=== PATIENT | male | born 1955 | race Two or more races ===

== ENCOUNTER 2024-02-26 10:31 | Outpatient (RCR) | payer MEDICARE, SELFPAY ==
[2024-02-26 11:55] LABS: Basophils % (Auto) 1 % (0-2.5); Eosinophils # (Auto) 0.1 Thou/mm3 (0.0-0.5); Eosinophils % (Auto) 3 % (0-10); Hematocrit 37.7 % (41.0-53.0); Hemoglobin 12.5 g/dL (13.5-16.0); Immature Granulocytes % (Auto) 0 % (0-0); Immature Granulocytes Auto 0.01 Thou/mm3 (0.00-0.00); Lymphocytes # (Auto) 1.7 Thou/mm3 (1.0-4.8); Lymphocytes % (Auto) 38 % (10-50); Mean Corpuscular HGB Conc 33.2 g/dl (31.0-37.0); Mean Corpuscular Hemoglobin 31.8 pg (25.0-35.0); Mean Corpuscular Volume 96 fL (80-100); Monocytes # (Auto) 0.6 Thou/mm3 (0.0-0.8); Monocytes % (Auto) 13 % (0-12); Neutrophils % (Auto) 45 % (37-80); Nucleated Red Blood Cell % 0 /100 WBC (0); Platelet Count 198 Thou/mm3 (140-440); RDW Standard Deviation 45.8 fL (35.1-43.9); Red Blood Count 3.93 Miln/mm3 (4.50-5.90); White Blood Count 4.4 Thou/mm3 (3.8-10.6)
[2024-02-26 12:15] LABS: Alanine Aminotransferase 36 U/L (10-49); Albumin, Serum 4.2 gm/dL (3.4-4.8); Albumin/Globulin Ratio 1.4 (1.2-2.2); Alkaline Phosphatase 56 U/L (46-116); Anion Gap 7 (7-16); Aspartate Amino Transferase 63 U/L (0-34); BUN/Creatinine Ratio 13 Ratio (12-20); Bilirubin,Total 0.4 mg/dL (0.3-1.2); Blood Urea Nitrogen 20 mg/dL (9-23); Calcium 9.6 mg/dL (8.3-10.6); Calcium (Corrected) 9.6 mg/dL (8.5-10.1); Carbon Dioxide 28.5 mMol/L (20.0-31.0); Chloride 104 mMol/L (98-107); Creatinine (Component) 1.5 mg/dL (0.6-1.3); Globulin 2.9 gm/dL (2.3-3.5); Glucose 100 mg/dL (74-106); Osmolality,Calculated 280 (275-295); Potassium 3.9 mMol/L (3.4-5.1); Sodium 139 mMol/L (136-145); Total Protein 7.1 gm/dL (5.7-8.2); eGFR 50 See Note
== END 2024-03-09 23:59 | disposition home or self-care (01) ==
LOC: SCTC 10:31
PROVIDERS: PCP Physician Assistant; Referring Provider Physician Assistant; Visit Provider Internal Medicine Hematology & Oncology
DX: C61 Malignant neoplasm of prostate (principal); C79.51 Secondary malignant neoplasm of bone; Z79.818 Long term (current) use of other agents affecting estrogen receptors and estrogen levels; R59.0 Localized enlarged lymph nodes; Z86.19 Personal history of other infectious and parasitic diseases
CPT/HCPCS: 36415; 80053; 85025; 96372; J0897

== ENCOUNTER 2024-03-12 18:34 | Inpatient (IN) | payer MEDICARE, MEDICAID, SELFPAY ==
[2024-03-12 18:51] VITALS: BP 150/69; PULSE 96; RESP 16; TEMP 37.8; O2SAT 94
[2024-03-12 18:53] VITALS: BMI 28.1
--- NOTE | 2024-03-12 18:59 | XR_ITS ---
Examination: CT abdomen with intravenous contrast CT pelvis with intravenous contrast 2-D coronal reconstructions 2-D sagittal reconstructions Date and time of exam: March 13, 2024 at 0159 hrs. Comparison July 10, 2023 Indications: Blood in the stool this week, diagnosis malignant neoplasm of the colon CTDI: vol (mGy) 6.55 DLP: (mGycm) 351 Technique: Multiple axial sections of the abdomen and pelvis have been obtained. 64 slice high-resolution scanner used. 3 mm axial sections have been obtained, post intravenous injection 30 cc Isovue-300 2-D sagittal, coronal reconstructions obtained. Low dose protocols were performed. One or more of the following dose reduction techniques were used; automated exposure control, adjustment of the mA and/or KV according to patient size, use of iterative reconstruction technique. Findings: Mild pneumonia right base, minimal pleural disease Liver mildly irregular in contour No gallstones No splenic or pancreatic lesion No adrenal mass Atrophic left kidney Moderate bilateral renal parenchymal scar formation No renal or ureteral calculi, no hydronephrosis Left lateral periaortic left common iliac lymph nodes, the largest 26 mm No bowel obstruction No pericecal inflammatory change Urinary bladder intact Multiple osteoblastic lesions including thoracic lumbar vertebral bodies posterior left iliac bone, right iliac bone left acetabulum Impression: Right base pneumonia Atrophic left kidney Normal appendix Significant abdominal and left pelvic metastatic lymphadenopathy Osteoblastic metastatic disease No bowel obstruction
--- NOTE | 2024-03-12 18:59 | EKG_ITS ---
[facility] Test Date: 2024-03-12 Pat Name: RYLAN GARY Department: Room: - Gender: Male [employer] Hanger: : 1955 Requested By: Mansoor Stokes Order Number: [id number] Reading MD: Mansoor Stokes Measurements Intervals [place] Rate: 101 P: 54 GA: 163 QRS: -44 QRSD: 89 T: 56 QT: 333 QTc: 432 Interpretive Statements SINUS TACHYCARDIA MARKED LEFT AXIS DEVIATION [QRS AXIS < -30] NONSPECIFIC T-WAVE ABNORMALITY Compared to ECG 12/27/2022 11:24:28 T-wave abnormality now present Sinus rhythm no longer present /store/S0/[id number].pdf
--- NOTE | 2024-03-12 18:59 | PD.EDRME ---
Rapid Medical Screening Exam RME Arrival date/time: 03/12/24 18:34 68 year old male present to ED for c/o of gi bleed, chest pain I have greeted and performed a focused initial assessment of this patient. A comprehensive ED assessment and evaluation of the patient, analysis of all test results, and completion of the medical decision making process will be conducted by additional ED providers. Chief Complaint: GI Bleed Time Seen by Provider: 03/12/24 18:58 Vital signs: Vital Signs Temperature 100.0 F 03/12/24 18:51 Pulse Rate 96 03/12/24 18:51 Respiratory Rate 16 03/12/24 18:51 Blood Pressure 150/69 H 03/12/24 18:51 Pulse Oximetry (%) 94 L 03/12/24 18:51 Oxygen Delivery Method Room Air 03/12/24 18:51
[2024-03-12] MEDS: oxyCODONE/APAP 5/325 TABLET 2 TAB PO (19:17)
[2024-03-12] MEDS: ONDANSETRON ODT 4 MG TABRAP PO (19:17)
[2024-03-12 19:51] LABS: Basophils % (Auto) 1 % (0-2.5); Eosinophils # (Auto) 0.2 Thou/mm3 (0.0-0.5); Eosinophils % (Auto) 3 % (0-10); Hematocrit 32.3 % (41.0-53.0); Hemoglobin 11.2 g/dL (13.5-16.0); Immature Granulocytes % (Auto) 0 % (0-0); Immature Granulocytes Auto 0.01 Thou/mm3 (0.00-0.00); Lymphocytes # (Auto) 2.3 Thou/mm3 (1.0-4.8); Lymphocytes % (Auto) 37 % (10-50); Mean Corpuscular HGB Conc 34.7 g/dl (31.0-37.0); Mean Corpuscular Hemoglobin 31.9 pg (25.0-35.0); Mean Corpuscular Volume 92 fL (80-100); Monocytes # (Auto) 0.6 Thou/mm3 (0.0-0.8); Monocytes % (Auto) 10 % (0-12); Neutrophils # (Auto) 3.1 Thou/mm3 (1.8-7.7); Neutrophils % (Auto) 49 % (37-80); Nucleated Red Blood Cell % 0 /100 WBC (0); Platelet Count 239 Thou/mm3 (140-440); RDW Standard Deviation 43.5 fL (35.1-43.9); Red Blood Count 3.51 Miln/mm3 (4.50-5.90); White Blood Count 6.2 Thou/mm3 (3.8-10.6)
[2024-03-12 20:07] LABS: Prothrombin Time 10.9 Seconds (9.0-12.2)
[2024-03-12 20:10] LABS: Alanine Aminotransferase 28 U/L (10-49); Albumin, Serum 4.4 gm/dL (3.4-4.8); Albumin/Globulin Ratio 1.7 (1.2-2.2); Alkaline Phosphatase 52 U/L (46-116); Anion Gap 9 (7-16); Aspartate Amino Transferase 48 U/L (0-34); BUN/Creatinine Ratio 23 Ratio (12-20); Bilirubin,Total 0.6 mg/dL (0.3-1.2); Blood Urea Nitrogen 36 mg/dL (9-23); Calcium 10.1 mg/dL (8.3-10.6); Calcium (Corrected) 10.1 mg/dL (8.5-10.1); Chloride 100 mMol/L (98-107); Creatinine (Component) 1.6 mg/dL (0.6-1.3); Estimated Creatinine Clearance 39.4 mL/min (>60); Globulin 2.6 gm/dL (2.3-3.5); Glucose 105 mg/dL (74-106); Lipase 22 U/L (12-53); Osmolality,Calculated 282 (275-295); Potassium 3.7 mMol/L (3.4-5.1); Sodium 137 mMol/L (136-145); Troponin I < 0.020 ng/mL (0.0-0.045); eGFR 47 See Note
[2024-03-12 21:11] VITALS: BP 119/69; PULSE 95; RESP 16; TEMP 37.6; O2SAT 92
[2024-03-12 23:57] VITALS: BP 112/65; PULSE 89; RESP 15; O2SAT 91
[2024-03-13] VITALS (10 sets, daily range): BP systolic 106–146; BP diastolic 61–82; PULSE 60–114; RESP 12–96; TEMP 36.2–37.1; O2SAT 20–97
--- NOTE | 2024-03-13 02:51 | PD.EDGIBLD ---
ED GI Bleed RME/HPI General Chief complaint: GI Bleed Stated complaint: BLOOD IN STOOL, CHEST PAIN, CANCER PATIENT Time Seen by Provider: 03/12/24 18:58 Arrival date/time: 03/12/24 18:34 Limitations: no limitations RME / HPI RME / HPI Narrative: 03/12/24 18:34 68 year old male present to ED for c/o of gi bleed, chest pain I have greeted and performed a focused initial assessment of this patient. A comprehensive ED assessment and evaluation of the patient, analysis of all test results, and completion of the medical decision making process will be conducted by additional ED providers. Dr. Cobian's Main ED Evaluation: 68yo male presents to the ED for a chief complaint of bloody emesis x 1 day. Patient's states the patient was coughing last night, and started vomiting blood today. Patient states he started having mid chest pain when he was on his way in for evaluation. Reports associated dizziness and weakness. He denies any abdominal pain, back pain, bloody stools or any other associated symptoms. Denies any tobacco or alcohol use. Denies any history of similar symptoms. No known allergies. PMHx: HTN, HLD, asthma, prostate CA with bone mets and intra-abdominal adenopathy (2022) followed by Dr. Miramontes Related Data Home Medications ?Medication ?Instructions ?Recorded ?Confirmed amlodipine 10 mg tablet 10 mg PO QDAY 12/27/22 12/27/22 hydrochlorothiazide 12.5 mg tablet 12.5 mg PO QAM 12/27/22 12/27/22 simvastatin 40 mg tablet 40 mg PO QPM 12/27/22 12/27/22 tamsulosin 0.4 mg capsule (Flomax) 0.4 mg PO QDAY 12/27/22 12/27/22 Allergies Allergy/AdvReac Type Severity Reaction Status Date / Time No Known Allergies Allergy Verified 03/12/24 18:38 Review of Systems Review of Systems Systems Reviewed: All systems reviewed, normal except as documented Past Medical History Past Medical History NEUROLOGIC: Negative Neurological Disorders or Seizures CARDIAC: Positive Cardiac Disorders, Hypercholesterolemia, Deep Vein Thrombosis (right leg many yrs ago) and Hypertension; Negative Congestive Heart Failure RESPIRATORY: Positive Asthma (child); Negative Chronic Obstructive Pulmonary Disease (COPD) GASTROINTESTINAL: Positive Gastrointestinal Disorders, Hepatitis (C treated), Colorectal Cancer and Obesity GENITOURINARY: Positive Genitourinary Disorders, Prostate Cancer (stage 4) and Benign Prostatic Hyperplasia; Negative Renal Disease REPRODUCTIVE: Positive Gonorrhea (treated when teenager) and Syphilis (treated when teenager) MUSCULOSKELETAL: Positive Musculoskeletal Disorders and Arthritis ENDOCRINE: Negative Endocrine Disorders, Diabetes Mellitus Type 1 or Diabetes Mellitus Type 2 HEMATOLOGIC: Negative Blood Disorders or Sickle Cell Disease PSYCHO/SOCIAL: Positive Recreational Drug Use (cocaine, heroin as a teen) OTHER HISTORY: Positive Hospitalization (surgery), Chicken Pox, Cancer, Colorectal Cancer and Prostate Cancer (stage 4); Negative Autoimmune Disease, Shingles, Blood Transfusions, Blood Transfusion Reaction, Anesthesia Reactions or MRSA Family History FAMILY HISTORY: Negative Family Psychiatric Problems, Family Respiratory Disorders, Family Cardiac Disorders, Family Gastrointestinal Problems, Family Cancer, Family Surgery or Family Anesthesia Reaction Social History SMOKING STATUS: Never smoker ED Exam General Limitations: Present no limitations General appearance: Present alert, in no apparent distress and other (face is gaunt looking) Head Head exam: Present atraumatic Eye Eye exam: Present normal appearance, PERRL and EOMI ENT ENT exam: Present normal exam, normal oropharynx, mucous membranes dry and other (tongue is dry) Neck Neck exam: Present normal inspection, full ROM and trachea midline Chest Chest inspection: Present normal inspection and symmetric chest wall rise Respiratory Respiratory exam: Present normal lung sounds bilaterally Cardiovascular Cardiovascular exam: Present regular rate, normal rhythm and normal heart sounds Abdominal Exam Abdominal exam: Present soft, normal bowel sounds and other (large); Absent rebound or mass Extremities Exam Extremities exam: Present normal inspection, full ROM and normal capillary refill; Absent pedal edema Back Exam Back exam: Present normal inspection and full ROM Neurological Exam Neurological exam: Present alert, oriented X3 and CN II-XII intact Psychiatric Psychiatric exam: Present normal affect and normal mood Skin Skin exam: Present warm, dry, intact, normal color, pallor and other (decreased skin turgor; no petechiae); Absent mottled Course Course Course Narrative: showed me a picture of the patient's emesis and it appeared dark with some clots. CXR ordered to r/o aspiration pneumonia. Quality Measures none Orders Category Date Time Status COVID-19 Screening Questionnaire NOW Care 03/13/24 04:[address] Screening NOW Care 03/12/24 19:00 Active Decision to Admit X1 Care 03/13/24 04:01 Active EKG (ED ONLY) *Do not use* NOW Care 03/12/24 19:00 Completed Insert IV NOW Care 03/13/24 01:17 Active Consult to Gastroenterology Stat Cons 03/13/24 04:[address] abdomen pelvis w con Stat Exams 03/12/24 18:59 Taken CXRP [XR chest 1V portable] Stat Exams 03/13/24 03:40 Taken EKG (ED Only) Stat Exams 03/12/24 18:59 Draft CBC Stat Lab 03/12/24 19:38 Completed CMP [Comprehensive Metabolic Panel] Stat Lab 03/12/24 19:38 Completed INR [Prothrombin Time with INR] Stat Lab 03/12/24 19:38 Completed Lipase Stat Lab 03/12/24 19:38 Completed Troponin I Stat Lab 03/12/24 19:38 Completed Ondansetron Odt [Zofran Odt] Med 03/12/24 19:12 Discontinued 4 mg PO X1 ONE Pantoprazole Inj [Protonix Inj] Med 03/13/24 03:06 Discontinued 80 mg IV X1 ONE Pantoprazole/Ns 80Mg IV Premix [Protonix/NS 80mg IV Med 03/13/24 03:06 Active Premix] 80 mg in 100 ml IV X1 Sodium Chloride 0.9% 1000 ml [Ns] 1,000 ml Med 03/13/24 03:29 Active IV 999 mls/hr oxyCODONE/APAP 5/325 [Percocet 5/325] Med 03/12/24 19:11 Discontinued 2 tab PO X1 ONE Vital Signs Vital signs: Vital Signs Temperature 100.0 F 03/12/24 18:51 Pulse Rate 96 03/12/24 18:51 Respiratory Rate 16 03/12/24 18:51 Blood Pressure 150/69 H 03/12/24 18:51 Pulse Oximetry (%) 94 L 03/12/24 18:51 Oxygen Delivery Method Room Air 03/12/24 18:51 GI Bleed Patient data External records reviewed:: [facility] previous records (Reviewed outpatient oncology notes.) Clinical information provided by:: patient Social determinants that could affect healthcare access:: none Patient has the following chronic illnesses:: HTN, HLD, asthma, prostate CA with bone mets and intra-abdominal adenopathy (2022) How is presenting disease/condition affected by chronic disease/condition?: uneffected by Evaluation data The following diagnostics were reviewed and interpreted by me:: lab results, radiology exam(s) and EKG tracing(s) Lab and/or radiology exams considered but not ordered:: none Interpretation Summary: CBC is normal, PT and INR are normal, Creatinine is slightly elevated at 1.6, troponin is normal, Lipase is normal, according to my interpretation. CXR shows bilateral haziness, atelectasis at the right base, no infiltrate, hilar fullness on the left, mild cardiomegaly, no pneumothorax, according to my interpretation. EKG done at 1906, sinus tachycardia, rate of 101, left axis deviation, nonspecific ST-T wave changes in V2, no other elevations or depressions, QTc: 391, according to my interpretation. ------ Telerad Preliminary Report Draft Patient: RYLAN GARY. Record#: [id number] Birthdate: 1955 Age/Sex: 68 / M Location: [facility] Attending Dr: Ordering Physician: Date of Service: Procedure(s): Accession Number(s): cc: ~ CT scan of the abdomen and pelvis with intravenous contrast (axial sections with sagittal and coronal reformats). March 13, 2024 at 0159 hours Clinical History: Rectal bleeding, history of colon cancer. Comparison: Compared with the prior study dated July 10, 2023. Findings: Limited evaluation due to suboptimal bolus of contrast. There is a small right pleural effusion, new since the prior examination. Bibasilar dependent and streaky atelectasis is present. A small hiatal hernia is present. Calcific densities are again seen in the liver, likely representing calcified granulomas. The left kidney is mildly atrophic with again noted focal parenchymal scarring in the upper pole. Small hypodense lesions are again noted in both kidneys, too small to characterize. There is interval passage of the left distal ureteric calculus with interval resolution of the mild hydroureteronephrosis seen in the prior examination. The gallbladder, pancreas, spleen and adrenals are unremarkable. No evidence of bowel obstruction. The appendix is within normal limits. Again seen are prominent retroperitoneal and bilateral iliac lymph nodes with adjacent fat stranding, slightly decreased in size since the prior examination, the largest seen in the left iliac region, now measuring 2.7 x 1.4 cm, previously measured 3.4 x 1.8 cm. The urinary bladder is incompletely distended with apparent mild wall thickening and mild adjacent fat stranding, slightly increased since the prior examination. There is no free fluid or free air. The abdominal aorta demonstrates atheromatous calcification without evidence of aneurysm. Again seen are small fat-containing umbilical and bilateral inguinal hernias. Degenerative changes are again identified in the spine. Stable multiple sclerotic lesions in bilateral iliac bones, L5 and S1 vertebral bodies, which may represent metastases. Impression: 1. Limited study for detection of active gastrointestinal bleeding due to suboptimal bolus of contrast. 2. Small right pleural effusion, new since the prior examination. 3. Prominent retroperitoneal and bilateral iliac lymph nodes, slightly decreased in size since the prior examination 4. Other findings as described above. Report Electronically Signed By: Nida Iglesias 03/13/2024 3:58:10 AM [EST] Medications / Prescriptions Medications or Prescriptions considered but not ordered:: none Medication administrations:: Medication Administration History Pantoprazole Sodium (Protonix/Ns 80mg Iv Premix) 80 mg in 100 mls @ 10 mls/hr IV X1 ONE Stop: 03/13/24 13:05 Last Admin: 03/13/24 03:35 Dose: 10 mls/hr Documented By: EF Sodium Chloride (Ns) 1,000 mls @ 999 mls/hr IV .Q1H1M ONE Stop: 03/13/24 04:29 Last Admin: 03/13/24 03:36 Dose: 999 mls/hr Documented By: EF Discontinued Medications Ondansetron HCl (Ondansetron Odt 4 Mg Tabrap) 4 mg PO X1 ONE; Protocol Stop: 03/12/24 19:13 Last Admin: 03/12/24 19:17 Dose: 4 mg Documented By: OA Oxycodone/Acetaminophen (Oxycodone/Apap 5/325 Tablet) 2 tab PO X1 ONE Stop: 03/12/24 19:12 Last Admin: 03/12/24 19:17 Dose: 2 tab Documented By: OA Pantoprazole Sodium (Pantoprazole Inj 40 Mg Vial) 80 mg IV X1 ONE Stop: 03/13/24 03:07 Last Admin: 03/13/24 03:35 Dose: 80 mg Documented By: EF see above Consultations Consultation(s) initiated? (list below): Yes Consultation #1 (Physician, Specialty, Details): Discussed case with [the resident physician, attending Dr. Lema] from Hospitalist service regarding admission. Discussed patients ED course, exam findings, labs, and radiology results. The Hospitalist [agrees, declines] to accept the patient for admission. Time: 03:59 Consultation #2 (Physician, Specialty, Details): Discussed case with [Dr. Miller] from [GI] regarding [consultation]. Discussed patients ED course, exam findings, labs, and radiology results. Agrees to consult. Time: 04:06 Diagnosis GI bleed differential diagnosis: esophageal varices, Ashley-Cedillo syndrome, Upper gastrointestinal hemorrhage, Lower gastrointestinal hemorrhage and other (metastasis) Most likely diagnosis given after review of the tests above:: see below Admission Indicated Admission indicated?: indicated Admission Request Was there a request for admission?: Yes Admission Attestation Admission request attestation: Discussed case with [] from Hospitalist service regarding admission. Discussed patients ED course, exam findings, labs, and radiology results. The Hospitalist [agrees,declines] to accept the patient for admission. Disposition Plan Disposition Plan: Admit Critical Care Time Critical Care Time Critical Care Time: Yes Total Critical Care Time (min.): 35 Attestation: The high probability of sudden, clinically significant deterioration in the patient?s condition required the highest level of my preparedness to intervene urgently. The services I provided to this patient were to treat and/or prevent clinically significant deterioration. Services included the following: chart data review, reviewing nursing notes and/or old charts, documentation time, client development consultant collaboration regarding findings and treatment options, medication orders and management, direct patient care, vital sign assessments and ordering, interpreting and reviewing diagnostic studies and lab tests. Aggregate critical care time includes only time during which I was engaged in work directly related to the patient?s care, as described above, whether at bedside or elsewhere in the Emergency Department. It did not include time spent performing other reported procedures or the services of residents, students, nurses or physician assistants. Discharge Plan Plan Patient Disposition: Admit Acute Care w/in Hospital Patient condition on transfer: Stable Prescriptions/Referrals Prescriptions/Med Rec: No Action simvastatin 40 mg Tablet 40 mg PO QPM tamsulosin [Flomax] 0.4 mg Capsule 0.4 mg PO QDAY amlodipine 10 mg Tablet 10 mg PO QDAY hydrochlorothiazide 12.5 mg Tablet 12.5 mg PO QAM Referrals: CottoJoshua, PA-C [Primary Care Provider] - In 1 week Problem List Clinical Impression: Upper gastrointestinal hemorrhage, Acute renal failure Patient/Caregiver Discharge Instructions Print Language: Monegasque Stand Alone Forms: Annabelle Award Info., Patient Portal Info Letter
[2024-03-13] MEDS: PANTOPRAZOLE/NS 80MG IV PREMIX 80 MG/100 ML BAG 10 MG IV (03:35)
[2024-03-13] MEDS: PANTOPRAZOLE INJ 40 MG VIAL 80 MG IV (03:35)
[2024-03-13] MEDS: SODIUM CHLORIDE 0.9% 1000 ML 1,000 ML 999 ML IV (03:36)
--- NOTE | 2024-03-13 03:40 | XR_ITS ---
Examination: AP chest single view Technique: AP portable upright chest single view Exam date and time: March 13, 2024 0355 hrs. Indications: Vomiting today. Findings: Negative for aspiration pneumonia Accentuation bronchovascular markings No significant cardiac enlargement No pulmonary edema Impression: Mild basilar bronchitis pattern
--- NOTE | 2024-03-13 03:58 | PRELIM_ITS ---
CT scan of the abdomen and pelvis with intravenous contrast (axial sections with sagittal and coronal reformats). March 13, 2024 at 0159 hoursClinical History: Rectal bleeding, history of colon cancer .Comparison: Compared with the prior study dated July 10, 2023.Findings:Limited evaluation due to subo ptimal bolus of contrast.There is a small right pleural effusion, new since the prior examination. Bi basilar dependent and streaky atelectasis is present. A small hiatal hernia is present. Calcific dens ities are again seen in the liver, likely representing calcified granulomas. The left kidney is mildl y atrophic with again noted focal parenchymal scarring in the upper pole. Small hypodense lesions are again noted in both kidneys, too small to characterize. There is interval passage of the left distal ureteric calculus with interval resolution of the mild hydroureteronephrosis seen in the prior exami nation.The gallbladder, pancreas, spleen and adrenals are unremarkable.No evidence of bowel obstructi on. The appendix is within normal limits. Again seen are prominent retroperitoneal and bilateral dominga c lymph nodes with adjacent fat stranding, slightly decreased in size since the prior examination, th e largest seen in the left iliac region, now measuring 2.7 x 1.4 cm, previously measured 3.4 x 1.8 cm . The urinary bladder is incompletely distended with apparent mild wall thickening and mild adjacent fat stranding, slightly increased since the prior examination. There is no free fluid or free air.The abdominal aorta demonstrates atheromatous calcification without evidence of aneurysm. Again seen are small fat-containing umbilical and bilateral inguinal hernias. Degenerative changes are again identi fied in the spine. Stable multiple sclerotic lesions in bilateral iliac bones, L5 and S1 vertebral uday dies, which may represent metastases. Impression:1. Limited study for detection of active gastrointes tinal bleeding due to suboptimal bolus of contrast.2. Small right pleural effusion, new since the see or examination. 3. Prominent retroperitoneal and bilateral iliac lymph nodes, slightly decreased in s ize since the prior examination4. Other findings as described above. Report Electronically Signed By : Nida Iglesias 03/13/2024 3:58:10 AM [EST]
--- NOTE | 2024-03-13 04:48 | PD.RESHP ---
Documentation for date of: 03/13/24 HPI History of Present Illness Chief complaint: Coffee-ground emesis and chest pain for 1 day History of present illness: HPI: A 68-year-old male patient with past medical history of hepatitis C, prostatic cancer with bone metastasis following up with Dr. Hayes, remote history of heroin abuse, remote history of cocaine abuse, presented to the ED due to 5 episodes of coffee-ground vomiting since yesterday. Patient reported for the past 2 days he has been coughing up brownish phlegm however he denied any fever or chills. Denied any shortness of breath or runny nose. Yesterday patient had 5 episodes of coffee-ground emesis associated with mild epigastric pain. Patient reported that he has never had such symptoms before. On questioning patient also reported chest pain that started at 11 in the morning and continued for almost 30 minutes and it resolved by itself. The pain was diffuse and poorly localized, happened at rest and resolved by itself. Home medications: Morphine, tamsulosin, simvastatin, prednisone, hormonal therapy for prostatic cancer. ED course: In the ED patient was found to have stable vital signs, rate was 96. Hemoglobin was stable at 10.3 his baseline is 11.5. Hematocrit of 30, platelets of 209 coagulation studies within normal limits. Chemistry was significant only for serum creatinine of 1.6 which is his baseline from previous labs. GFR of 47. CT scan of the abdomen and pelvis showed small right pleural effusion that is new and was not seen in the previous CT. Retroperitoneal bilateral iliac lymphadenopathy that showed significant improvement since previous CT scan that was done in July 2023. Also sclerotic bone lesions most likely metastatic tumors. PMH:As above PSX: Air embolism removal Social hx: Alcohol:Denied Tobacco:55 years of smoking 1 to 2 packs/day Illicit drugs: IV drug use, last use was 2 years ago Allergies: No known allergies Review of Systems Review of Systems Systems Reviewed: All systems reviewed, normal except as documented Exam Vital Signs Temp Pulse Resp BP Pulse Ox O2 Del Method O2 Flow Rate 97.7 F 65 12 132/82 H 97 Nasal Cannula 2 03/13/24 03:45 03/13/24 03:45 03/13/24 03:45 03/13/24 03:45 03/13/24 03:45 03/13/24 03:45 03/13/24 03:45 Narrative Exam GEN: AOx3, able to speak full sentences HEENT: NC/AC, PERRLA, oral mucosa moist, neck supple CVS: RRR, S1-S2 present, no murmurs appreciated RESP: CTAB GI: soft,non distended, left loin area tenderness, NBS MSK: able to move all 4 limbs, no lower extremity edema SKIN: Multiple tattoos ELECTRICAL MAINTENANCE TECHNICIAN: CN II-XII and Sensation grossly intact. Results: Labs 03/13/24 05:40 03/13/24 05:40 Labs: Short CBC 03/12/24 Range/Units 19:38 WBC 6.2 (3.8-10.6) Thou/mm3 Hgb 11.2 L (13.5-16.0) g/dL Hct 32.3 L (41.0-53.0) % Plt Count 239 D (140-440) Thou/mm3 BMP 03/12/24 19:38 Sodium 137 Potassium 3.7 Chloride 100 Carbon Dioxide 28.0 BUN 36 H Creatinine 1.6 H Glucose 105 Calcium 10.1 Cardiac Enzymes 03/12/24 Range/Units 19:38 Troponin I < 0.020 (0.0-0.045) ng/mL Liver Function 03/12/24 Range/Units 19:38 Total Bilirubin 0.6 (0.3-1.2) mg/dL AST 48 H (0-34) U/L ALT 28 (10-49) U/L Alkaline Phosphatase 52 (46-116) U/L Albumin 4.4 (3.4-4.8) gm/dL Quality Measures Quality Measures none Advance care planning discussed with:: patient Medications Home Medications and Allergies Home Medications ?Medication ?Instructions ?Recorded ?Confirmed ?Type amlodipine 10 mg tablet 10 mg PO QDAY 12/27/22 12/27/22 History hydrochlorothiazide 12.5 mg tablet 12.5 mg PO QAM 12/27/22 12/27/22 History simvastatin 40 mg tablet 40 mg PO QPM 12/27/22 12/27/22 History tamsulosin 0.4 mg capsule (Flomax) 0.4 mg PO QDAY 12/27/22 12/27/22 History Allergies Allergy/AdvReac Type Severity Reaction Status Date / Time No Known Allergies Allergy Verified 03/12/24 18:38 Visit Medications Pantoprazole Sodium (Protonix/Ns 80mg Iv Premix) 80 mg in 100 mls @ 10 mls/hr IV X1 ONE Stop: 03/13/24 13:05 Last Admin: 03/13/24 03:35 Dose: 10 mls/hr Discontinued Medications Sodium Chloride (Ns) 1,000 mls @ 999 mls/hr IV .Q1H1M ONE Stop: 03/13/24 04:29 Last Admin: 03/13/24 03:36 Dose: 999 mls/hr Ondansetron HCl (Ondansetron Odt 4 Mg Tabrap) 4 mg PO X1 ONE; Protocol Stop: 03/12/24 19:13 Last Admin: 03/12/24 19:17 Dose: 4 mg Oxycodone/Acetaminophen (Oxycodone/Apap 5/325 Tablet) 2 tab PO X1 ONE Stop: 03/12/24 19:12 Last Admin: 03/12/24 19:17 Dose: 2 tab Pantoprazole Sodium (Pantoprazole Inj 40 Mg Vial) 80 mg IV X1 ONE Stop: 03/13/24 03:07 Last Admin: 03/13/24 03:35 Dose: 80 mg Assessment & Plan Plan A 68-year-old male patient with past medical history of hepatitis C, prostatic cancer with bone metastasis following up with Dr. Hayes, remote history of heroin abuse, remote history of cocaine abuse, presented to the ED due to 5 episodes of coffee-ground vomiting since yesterday. Patient was admitted for upper GI bleed workup. Assessment and plan #Upper GI bleed In the ED patient was found to have stable vital signs, rate was 96. Hemoglobin was stable at 10.3 his baseline is 11.5. Hematocrit of 30, platelets of 209 coagulation studies within normal limits. Patient vital stable. no active bleed. Plan ? Daily CBC ? GI specialist Dr. Miller was consulted, follow-up on recommendations ?Continue pantoprazole drip ? Clear liquid diet ? Follow-up on the FOB test #Chest pain Patient reported that he experienced pressure-like chest pain diffuse, unprovoked, at rest, not related to respiration. Resolved by itself after 30 minutes. EKG was within normal limits with no ischemic changes. Troponins within normal limits Plan ? Continue to monitor closely ? Consider consulting cardiology if clinically warranted ? Because of the risk of GI bleed we did not start the patient on aspirin until further evaluation. #CKD Patient is unaware of any kidney disease. On review of the patient's chart his baseline serum creatinine is 1.6 with GFR of 47. Plan ? Avoid nephrotoxic medications ? Daily BMP ? Consider consulting wood handler if clinically warranted #History of prostate cancer with metastasis #Diffuse bone metastasis Patient has history of prostatic cancer, follow-up with Dr. Hayes. Patient is unaware of his cancer medications Plan ? Consider resuming patient medications after med reconciliation ? Resume patient tamsulosin #Incidental finding of pleural effusion Patient does not complain of any shortness of breath, cough, runny nose, or congestion. Denied any history of sick contact Plan ? Continue to monitor could be related to cancer metastasis #Remote history of IV drug abuse #History of hepatitis C Liver enzymes within normal limits, albumin levels within normal limits no coagulopathy. CT scan did not show liver cirrhosis. Plan ? HIV screening ? Follow-up with the GI specialist recommendations ? Follow-up in an outpatient settings with his PCP Hospital Maintenance: FEN: Clear liquid diet DVT ppx: SCDs GI ppx: Protonix IV lines: PIV Mayberry: None Code status: Full code Dispo: Med/tele - Patient's plan and care discussed with my attending, Dr. Torey Gomez MD Internal Medicine PGY-2
[2024-03-13 05:50] LABS: Basophils % (Auto) 1 % (0-2.5); Eosinophils # (Auto) 0.2 Thou/mm3 (0.0-0.5); Eosinophils % (Auto) 4 % (0-10); Hematocrit 30.6 % (41.0-53.0); Hemoglobin 10.3 g/dL (13.5-16.0); Immature Granulocytes % (Auto) 0 % (0-0); Lymphocytes # (Auto) 2.5 Thou/mm3 (1.0-4.8); Lymphocytes % (Auto) 45 % (10-50); Mean Corpuscular HGB Conc 33.7 g/dl (31.0-37.0); Mean Corpuscular Hemoglobin 31.8 pg (25.0-35.0); Mean Corpuscular Volume 94 fL (80-100); Monocytes # (Auto) 0.7 Thou/mm3 (0.0-0.8); Monocytes % (Auto) 12 % (0-12); Neutrophils # (Auto) 2.2 Thou/mm3 (1.8-7.7); Neutrophils % (Auto) 39 % (37-80); Nucleated Red Blood Cell % 0 /100 WBC (0); Platelet Count 209 Thou/mm3 (140-440); RDW Standard Deviation 44.7 fL (35.1-43.9); Red Blood Count 3.24 Miln/mm3 (4.50-5.90); White Blood Count 5.6 Thou/mm3 (3.8-10.6)
[2024-03-13 06:07] LABS: Glucose Estimated Average 100 mg/dL (80-131); Hemoglobin A1C 5.1 % Hgb (4.8-6.0)
[2024-03-13 06:43] LABS: Alanine Aminotransferase 24 U/L (10-49); Albumin, Serum 3.8 gm/dL (3.4-4.8); Albumin/Globulin Ratio 1.7 (1.2-2.2); Alkaline Phosphatase 47 U/L (46-116); Anion Gap 8 (7-16); Aspartate Amino Transferase 41 U/L (0-34); BUN/Creatinine Ratio 23 Ratio (12-20); Bilirubin,Total 0.4 mg/dL (0.3-1.2); Blood Urea Nitrogen 37 mg/dL (9-23); Calcium (Corrected) 9.2 mg/dL (8.5-10.1); Carbon Dioxide 28.4 mMol/L (20.0-31.0); Chloride 102 mMol/L (98-107); Creatinine (Component) 1.6 mg/dL (0.6-1.3); Estimated Creatinine Clearance 39.4 mL/min (>60); Globulin 2.3 gm/dL (2.3-3.5); Glucose 95 mg/dL (74-106); Osmolality,Calculated 284 (275-295); Potassium 3.5 mMol/L (3.4-5.1); Sodium 138 mMol/L (136-145); Thyroid Stimulating Hormone 2.48 uIU/mL (0.55-4.78); Total Protein 6.1 gm/dL (5.7-8.2); eGFR 47 See Note
[2024-03-13] MEDS: oxyCODONE/APAP 5/325 TABLET 1 TAB PO (07:43)
[2024-03-13] MEDS: TAMSULOSIN HCL 0.4 MG CAPSULE PO (08:54)
[2024-03-13] MEDS: POTASSIUM CHLORIDE 10% 20 MEQ/15 ML UDC 40 MEQ PO (08:58)
[2024-03-13 09:43] LABS: HIV (1&2) Antibody Rapid Non-Reactive
[2024-03-13 11:59] LABS: Acetaminophen < 2.0 mcg/mL (10.0-20.0)
[2024-03-13] MEDS: LACTULOSE SYRUP 20 GM/30 ML UDC 10 GM PO (12:38)
--- NOTE | 2024-03-13 12:49 | ESPR_ITS ---
<Statement entered by Carlos Batista MD - 03/13/24 17:10> Patient was seen and examined at the bedside. Patient is admitted overnight with a history of hepatitis C, prostate cancer with mets to bone. Patient presented with coffee-ground emesis. He was found to have WBC 5.6, hemoglobin 10.3 and platelets 219. Chest x-ray showed right base pneumonia. Chemistry panel showed mild hypokalemia. Kidney function showed BUN 37 creatinine 1.6. Patient received chemotherapy injection last month and is due for her next on March 31. He also reported to have chest pain however EKG and troponin I was negative. We ordered type and screen. Currently we are continuing Protonix 40 mg IV twice daily consulted GI specialist. Will likely follow-up with EGD. Patient was taking steroids [place] and morphine and acetaminophen for pain management for metastatic bone disease. Chemotherapy medications were reconciled. Will likely follow-up with endoscopy results. HIV panel negative. Monitor CBC closely. All labs and orders were reviewed. I saw and examined the patient, and I agree with current management stated by Dr Angeles MD ,PGY1. Plan of care was discussed with the attending physician and resident physician. Disclaimer: Despite multiple revisions, due to the dictation software being used, the document bellow may not be free of grammatical errors including phonetic/typographic errors. However, this does not deter from our commitment to providing health care in the patient's best interest in mind. Dr. Lynne MD, PGY 2 Documentation for date of: 03/13/24 Subjective Subjective Interval history: Patient is a 68-year-old male with a past medical history of polysubstance use disorder (heroin and cocaine), history of hepatitis C, history of prostate cancer with mets to the bone who follows Dr. Alford/Abigail who was admitted for hematemesis. No overnight events reported for patient. Patient examined at bedside. Patient stated that this has been the first episode of hematemesis that has occurred. Patient reports 5 episodes overnight with coffee-ground emesis. Patient presented pictures hematemesis which appeared dark with waqas blood. Patient denied any history of alcohol use currently. Patient stated he initially felt nauseous and off. Reported 1 episode of emesis and then stuck at toothbrush down his throat to elicit emesis. Patient has a past medical history of gastric ulcers in his teens to mid 30s. Patient stated he is currently taking Tylenol about 1000 mg daily. Denied any use of NSAIDs. Patient continues to take prednisone 5 mg daily, tamsulosin, and [place] 7.5/morphine as needed. Continues to take Abiraterone 500 mg BID. Patient denied history of dysphagia. Denied CMV or HSV history. Jesus Alberto, pending Dr. Miller recommendations for EGD. Exam Vital Signs Temp Pulse Resp BP Pulse Ox O2 Del Method O2 Flow Rate 98.8 F 60 13 117/64 20 L Nasal Cannula 2 03/13/24 07:17 03/13/24 10:30 03/13/24 10:30 03/13/24 07:17 03/13/24 10:30 03/13/24 07:17 03/13/24 10:30 Narrative Exam General Appearance: Alert & Oriented X3, well-nourished male who is lying in bed in no acute distress HEENT: Skull symmetrical and atraumatic. Conjunctivae pink and moist. Pupils equal, round, reactive to light and accommodation (PERRL). External ear without lesion or discharge. Straight, nares patient, mucosa pink, no discharge. Cardio: Normal Rate and Rhythm with S1 and S2 heart sounds. No murmurs or extra heart sounds auscultated. No bruits on carotid auscultation. No peripheral edema or cyanosis. Lungs: Symmetric with good expansion. Chest and back non-tender. Breath sounds vesicular without crackles, wheezing or rhonchi Abdomen: Non-tender, Non-distended, Normal Reactive Bowel Sounds Neuro: Alert, cooperative, oriented to person, place, and time. Speech clear. CN grossly intact. Upper motor strength 5/5 and Lower motor strength 5/5. Sensation intact. Objective Labs 03/14/24 06:01 03/14/24 06:01 Labs: Laboratory Results - last 24 hr 03/12/24 03/13/24 19:38 05:40 WBC 6.2 5.6 RBC 3.51 L 3.24 L Hgb 11.2 L 10.3 L Hct 32.3 L 30.6 L MCV 92 94 MCH 31.9 31.8 MCHC 34.7 33.7 RDW Std Deviation 43.5 44.7 H Plt Count 239 D 209 D Neut % (Auto) 49 39 Lymph % (Auto) 37 45 [place] % (Auto) 10 12 Eos % (Auto) 3 4 Baso % (Auto) 1 1 Neut # (Auto) 3.1 2.2 Lymph # (Auto) 2.3 2.5 [place] # (Auto) 0.6 0.7 Eos # (Auto) 0.2 0.2 Baso # (Auto) 0.0 0.0 Immature Gran # (Auto) 0.01 H 0.00 Absolute Nucleated RBC 0.00 0.00 Immature Gran % 0 0 Nucleated RBC % 0 0 PT 10.9 INR 1.0 Sodium 137 138 Potassium 3.7 3.5 Chloride 100 102 Carbon Dioxide 28.0 28.4 Anion Gap 9 8 BUN 36 H 37 H Creatinine 1.6 H 1.6 H Estim Creat Clear Calc 39.4 L 39.4 L eGFR 47 L 47 L BUN/Creatinine Ratio 23 H 23 H Glucose [address] Glu mg/dL 100 Hemoglobin A1c 5.1 Calculated Osmolality 282 284 Calcium 10.1 9.0 Corrected Calcium 10.1 9.2 Magnesium 2.0 Total Bilirubin 0.6 0.4 AST 48 H 41 H ALT 28 24 Alkaline Phosphatase 52 47 Troponin I < 0.020 Total Protein 7.0 6.1 Albumin 4.4 3.8 D Globulin 2.6 2.3 Albumin/Globulin Ratio 1.7 1.7 Lipase 22 TSH 2.48 Acetaminophen < 2.0 L HIV 1&2 Antibody Rapid Non-Reactive Quality Measures Quality Measures none Advance care planning discussed with:: other Assessment & Plan Assessment Current Active Medications: Generic Name Dose Route Start Last Admin Trade Name Freq PRN Reason Stop Dose Admin Acetaminophen 650 mg 03/13/24 04:48 Acetaminophen 325 Mg Tablet PO 04/12/24 04:47 Q6H PRN Fever >101.5 Acetaminophen 650 mg 03/13/24 04:48 Acetaminophen 325 Mg Tablet PO 04/12/24 04:47 Q6H PRN PAIN SCALE 1-3 (mild Pantoprazole Sodium 80 mg in 100 mls @ 10 mls/hr 03/13/24 03:06 03/13/24 03:35 Protonix/Ns 80mg Iv Premix IV 03/13/24 13:05 10 mls/hr X1 ONE Administration Naloxone HCl 2 mg/ Dextrose 500 mls @ 10 mls/hr 03/13/24 05:22 IV 04/12/24 04:59 .Q24H PRN RESPIRATORY DEPRESSION Lactulose 10 gm 03/13/24 04:48 03/13/24 12:38 Lactulose Syrup 20 Gm/30 Ml Udc PO 04/12/24 08:59 10 gm QDAY PRN Administration constipation Protocol Morphine Sulfate 30 mg 03/13/24 04:58 Morphine Sulf 30 Mg Tabcr PO 03/18/24 04:57 Q12HR PRN Pain 7-10 Protocol Non-Formulary Medication 500 mg 03/13/24 21:00 Abiraterone PO 04/12/24 20:59 BID JORGE LUIS Ondansetron HCl 4 mg 03/13/24 04:48 Ondansetron Inj 2 Mg/Ml Inj 2 Ml IV 04/12/24 04:47 Q6H PRN NAUSEA OR VOMITING Protocol Oxycodone/Acetaminophen 1 tab 03/13/24 04:48 03/13/24 07:43 Oxycodone/Apap 5/325 Tablet PO 03/18/24 04:47 1 tab Q6H PRN Administration PAIN SCALE 4-6 (Moderate Pantoprazole Sodium 40 mg 03/14/24 09:00 Pantoprazole Inj 40 Mg Vial IV 04/13/24 08:59 BID JORGE LUIS Tamsulosin HCl 0.4 mg 03/13/24 09:00 03/13/24 08:54 Tamsulosin Hcl 0.4 Mg Capsule PO 04/12/24 08:59 0.4 mg QDAY JORGE LUIS Administration Plan Patient is a 68-year-old male with a past medical history of polysubstance use disorder (heroin and cocaine), history of hepatitis C, history of prostate cancer with mets to the bone who follows Dr. Alford/Abigail who was admitted for hematemesis. #Hematemsis #Upper GI bleed Patient reported acute onset of hematemesis, that came on with nausea. Has a history of Peptic ulcer diasease. Hematemsis secondary to medication use such as predinisone or chemo therapy medication can not be ruled out-currently holding. Patient reported using a toothbrush to force emesis. Boerhave event secondary to retching can not be ruled vs history of peptid ulcer given past medical history. Diagnsotics: (03/13/2023) Hgb 10.3 and Hct 30.6 MCV 94, Plt 209 (03/12/2023): PT 10.9 and INR 1 (both within normal limits) Plan ?Continue pantoprazole drip ? Clear liquid diet, NPO after midnight ? Follow-up on the FOB test (no bowel movements reported on 03/13/2023, follow up tomorrow w/ nurse) -EGD on 03/14/2024 ? GI specialist Dr. Miller was consulted, follow-up on recommendations #Chest pain #Sinus Tachycardia Patient describes epigastric pain that does not radiate to the back and currently not present only while hematemesis. Patient denied past medical history of [place]. Patient denied past medical history of GERD. EKG and troponin unremarkable. Given acute blood loss from hematemesis patient has presented with tachycardia likely secondary to acute blood loss follow-up with hemoglobin and hematocrit at midnight. Diagnostic: -Troponin <0.02 -EKG: Sinus Tachycardia Plan ? Continue to monitor closely HR -consider Hgb and Hct #CKD stage IIIa Patient is unaware of any kidney disease. On review of the patient's chart his baseline serum creatinine is 1.6 with GFR of 47. Plan ? Avoid nephrotoxic medications ? Daily BMP ? Consider consulting skin care specialist if clinically warranted #History of prostate cancer with metastasis #Diffuse bone metastasis Patient has history of prostatic cancer, follow-up with Dr. Hayes. Patient is unaware of his cancer medications Plan ? Consider resuming patient medications after med reconciliation ? Resume patient tamsulosin -Resume Abiraterone 500 mg BID -Holding Predinsone #Incidental finding of pleural effusion Patient does not complain of any shortness of breath, cough, runny nose, or congestion. Denied any history of sick contact Plan ? Continue to monitor could be related to cancer metastasis #Polysubstance Use Disorder #Remote history of IV drug abuse #History of hepatitis C Liver enzymes within normal limits, albumin levels within normal limits no coagulopathy. CT scan did not show liver cirrhosis. Plan ? HIV Negative ? Follow-up with the GI specialist recommendations ? Follow-up in an outpatient settings with his PCP Hospital Maintenance: FEN: Clear liquid diet, NPO after midnight DVT ppx: SCDs GI ppx: Protonix IV lines: PIV Mayberry: None Code status: Full code Dispo: Med/tele - The patient's plan was discussed with attending Dr. Dennis and senior residents Dr. Lynne Reynoso MD PGY1 Internal Medicine Attending Provider Attestation/Addendum I attest that I was physically present for the evaluation, physical examination, lab and imaging review of the patient with the residents. I discussed the case with the residents and agree with the findings and plans of care as documented above. Patient was admitted overnight for management of Acute upper GI bleeding. He is a 68-year-old male with a past medical history of polysubstance use disorder (heroin and cocaine), history of hepatitis C, history of prostate cancer with mets to the bone. We will continue with IV protonix, monitor hemoglobin levels. GI on board, patient planned for UGI endoscopy. Rosario Dennis MD
--- NOTE | 2024-03-13 17:45 | PD.IMCONS ---
HPI Data of Consult Requesting Physician: Trevor Lema MD Primary Care Provider: Joshua Cotto PA-C Consult Narrative Reason for consult: Coffee-ground hematemesis History of present illness: 68-year-old male presented to the emergency room with multiple episodes of hematemesis coffee-ground at least 5 of them He does have metastatic prostate carcinoma to the bone as well as abdominal and pelvic adenopathy which was demonstrated by CT scan of the abdomen pelvis done with contrast during this hospitalization showed significant abdominal and pelvic metastatic disease with lymphadenopathy and osteoblastic metastatic disease Patient is under the care of her local oncology group with hormonal treatment Presenting hemoglobin hematocrit 11.2 and 32.1 which has gone down to 10.3 and 30.6 with a platelet count of 209,000 Pro time INR is 1.0 BUN/creatinine elevated at 36 and 1.6 cc:: cc: Trevor Lema MD Review of Systems Review of Systems Systems Reviewed: All systems reviewed, normal except as documented Past Medical History Surgical History OTHER SURGICAL HX: As in the history of present illness Meds Home Medications and Allergies Home Medications ?Medication ?Instructions ?Recorded ?Confirmed ?Type amlodipine 10 mg tablet 10 mg PO QDAY 12/27/22 12/27/22 History hydrochlorothiazide 12.5 mg tablet 12.5 mg PO QAM 12/27/22 12/27/22 History simvastatin 40 mg tablet 40 mg PO QPM 12/27/22 12/27/22 History tamsulosin 0.4 mg capsule (Flomax) 0.4 mg PO QDAY 12/27/22 12/27/22 History Allergies Allergy/AdvReac Type Severity Reaction Status Date / Time No Known Allergies Allergy Verified 03/12/24 18:38 Exam Vital Signs Temp Pulse Resp BP Pulse Ox O2 Del Method O2 Flow Rate 97.1 F 114 H 14 126/67 94 L Nasal Cannula 2 03/13/24 16:00 03/13/24 16:00 03/13/24 16:00 03/13/24 16:00 03/13/24 16:00 03/13/24 16:00 03/13/24 16:00 Constitutional Comments: Chronically ill-appearing Routine Respiratory Exam Comments: Decreased breath sounds at the bases Routine Abdominal Exam Comments: Positive bowel sounds Results Labs 03/13/24 05:40 03/13/24 05:40 Labs: Short CBC 03/12/24 03/13/24 Range/Units 19:38 05:40 WBC 6.2 5.6 (3.8-10.6) Thou/mm3 Hgb 11.2 L 10.3 L (13.5-16.0) g/dL Hct 32.3 L 30.6 L (41.0-53.0) % Plt Count 239 D 209 D (140-440) Thou/mm3 BMP 03/12/24 03/13/24 19:38 05:40 Sodium 137 138 Potassium 3.7 3.5 Chloride 100 102 Carbon Dioxide 28.0 28.4 BUN 36 H 37 H Creatinine 1.6 H 1.6 H Glucose 105 95 Calcium 10.1 9.0 Cardiac Enzymes 03/12/24 Range/Units 19:38 Troponin I < 0.020 (0.0-0.045) ng/mL Liver Function 03/12/24 03/13/24 Range/Units 19:38 05:40 Total Bilirubin 0.6 0.4 (0.3-1.2) mg/dL AST 48 H 41 H (0-34) U/L ALT 28 24 (10-49) U/L Alkaline Phosphatase 52 47 (46-116) U/L Albumin 4.4 3.8 D (3.4-4.8) gm/dL Assessment and Plan Additional Assessment & Plan Additional Plan: # Coffee-ground hematemesis etiology uncertain Plan Serial CBC N.p.o. midnight tonight except p.o. meds Consent obtained for fiberoptic esophagogastroduodenoscopy with possible therapeutic intervention possible biopsy under intravenous moderate sedation scheduled for tomorrow Continue Protonix drip Will follow the patient Other medical problems include # Metastatic prostate carcinoma with abdominal and pelvic encephalopathy and metastatic bone disease osteoblastic lesions # DOMINICK Thank you very much for the opportunity to participate in the care of this patient
[2024-03-13] MEDS: MORPHINE SULF 30 MG TABCR PO (19:40)
[2024-03-14] VITALS (17 sets, daily range): BP systolic 107–174; BP diastolic 54–93; PULSE 58–96; RESP 10–94; TEMP 36.1–37.4; O2SAT 91–98; BMI 28.9
[2024-03-14 06:20] LABS: Basophils % (Auto) 1 % (0-2.5); Eosinophils # (Auto) 0.2 Thou/mm3 (0.0-0.5); Eosinophils % (Auto) 6 % (0-10); Hemoglobin 10.2 g/dL (13.5-16.0); Immature Granulocytes % (Auto) 0 % (0-0); Immature Granulocytes Auto 0.01 Thou/mm3 (0.00-0.00); Lymphocytes # (Auto) 1.6 Thou/mm3 (1.0-4.8); Lymphocytes % (Auto) 42 % (10-50); Mean Corpuscular HGB Conc 32.9 g/dl (31.0-37.0); Mean Corpuscular Hemoglobin 31.2 pg (25.0-35.0); Mean Corpuscular Volume 95 fL (80-100); Monocytes # (Auto) 0.5 Thou/mm3 (0.0-0.8); Monocytes % (Auto) 13 % (0-12); Neutrophils # (Auto) 1.5 Thou/mm3 (1.8-7.7); Neutrophils % (Auto) 38 % (37-80); Nucleated Red Blood Cell % 0 /100 WBC (0); Platelet Count 199 Thou/mm3 (140-440); RDW Standard Deviation 44.1 fL (35.1-43.9); Red Blood Count 3.27 Miln/mm3 (4.50-5.90); White Blood Count 3.9 Thou/mm3 (3.8-10.6)
[2024-03-14 06:58] LABS: Alanine Aminotransferase 28 U/L (10-49); Albumin, Serum 3.6 gm/dL (3.4-4.8); Albumin/Globulin Ratio 1.6 (1.2-2.2); Alkaline Phosphatase 39 U/L (46-116); Anion Gap 6 (7-16); Aspartate Amino Transferase 52 U/L (0-34); BUN/Creatinine Ratio 17 Ratio (12-20); Bilirubin,Total 0.4 mg/dL (0.3-1.2); Blood Urea Nitrogen 22 mg/dL (9-23); Calcium (Corrected) 9.3 mg/dL (8.5-10.1); Carbon Dioxide 28.3 mMol/L (20.0-31.0); Chloride 104 mMol/L (98-107); Creatinine (Component) 1.3 mg/dL (0.6-1.3); Globulin 2.3 gm/dL (2.3-3.5); Glucose 89 mg/dL (74-106); Osmolality,Calculated 277 (275-295); Phosphorous 1.9 mg/dL (2.4-5.1); Potassium 4.2 mMol/L (3.4-5.1); Sodium 138 mMol/L (136-145); Total Protein 5.9 gm/dL (5.7-8.2); eGFR 60 See Note
--- NOTE | 2024-03-14 08:22 | PC.NURSE ---
made aware that the pt noted bright red blood in stool last night. to made Dr. Miller aware. No orders given
[2024-03-14] MEDS: PANTOPRAZOLE INJ 40 MG VIAL IV ×2 (08:25→20:45)
[2024-03-14] MEDS: MORPHINE SULF 30 MG TABCR PO (08:26)
[2024-03-14] MEDS: TAMSULOSIN HCL 0.4 MG CAPSULE PO (08:26)
[2024-03-14] MEDS: NAPH,KPH MBDB 1 PACKET (1.5 GM) PO (08:37)
--- NOTE | 2024-03-14 13:45 | ESPR_ITS ---
Documentation for date of: 03/14/24 Subjective Subjective Interval history: Patient is a 68-year-old male with a past medical history of polysubstance use disorder (heroin and cocaine), history of hepatitis C, history of prostate cancer with mets to the bone who follows Dr. Alford/Abigail who was admitted for hematemesis. Overnight event, patient reported hematochezia in tissue paper. Likley secondary to straining. No FOBT collected. Patient denied hematemesis overnight. Pending EGD w/ Dr. Miller. Continue to hold prednisone. Exam Vital Signs Temp Pulse Resp BP Pulse Ox O2 Del Method O2 Flow Rate 98.0 F 58 L 15 140/82 H 93 L Room Air 2 03/14/24 12:00 03/14/24 12:00 03/14/24 12:00 03/14/24 12:00 03/14/24 12:00 03/14/24 12:00 03/14/24 00:00 Narrative Exam General Appearance: Alert & Oriented X3, well-nourished male who is lying in bed in no acute distress HEENT: Skull symmetrical and atraumatic. Conjunctivae pink and moist. Pupils equal, round, reactive to light and accommodation (PERRL). External ear without lesion or discharge. Straight, nares patient, mucosa pink, no discharge. Cardio: Normal Rate and Rhythm with S1 and S2 heart sounds. No murmurs or extra heart sounds auscultated. No bruits on carotid auscultation. No peripheral edema or cyanosis. Lungs: Symmetric with good expansion. Chest and back non-tender. Breath sounds vesicular without crackles, wheezing or rhonchi Abdomen: Non-tender, Non-distended, Normal Reactive Bowel Sounds Neuro: Alert, cooperative, oriented to person, place, and time. Speech clear. CN grossly intact. Upper motor strength 5/5 and Lower motor strength 5/5. Sensation intact. Objective Labs 03/14/24 06:01 03/14/24 06:01 Labs: Laboratory Results - last 24 hr 03/13/24 03/14/24 12:10 06:01 WBC 3.9 RBC 3.27 L Hgb 10.2 L Hct 31.0 L MCV 95 MCH 31.2 MCHC 32.9 RDW Std Deviation 44.1 H Plt Count 199 Neut % (Auto) 38 Lymph % (Auto) 42 [place] % (Auto) 13 H Eos % (Auto) 6 Baso % (Auto) 1 Neut # (Auto) 1.5 L Lymph # (Auto) 1.6 [place] # (Auto) 0.5 Eos # (Auto) 0.2 Baso # (Auto) 0.0 Immature Gran # (Auto) 0.01 H Absolute Nucleated RBC 0.00 Immature Gran % 0 Nucleated RBC % 0 Sodium 138 Potassium 4.2 D Chloride 104 Carbon Dioxide 28.3 Anion Gap 6 L BUN 22 Creatinine 1.3 Estim Creat Clear Calc 49.0 L eGFR 60 BUN/Creatinine Ratio 17 Glucose 89 Calculated Osmolality 277 Calcium 9.0 Corrected Calcium 9.3 Phosphorus 1.9 L Magnesium 2.0 Total Bilirubin 0.4 AST 52 H ALT 28 Alkaline Phosphatase 39 L Total Protein 5.9 Albumin 3.6 Globulin 2.3 Albumin/Globulin Ratio 1.6 Blood Type O Positive Antibody Screen NEGATIVE Quality Measures Quality Measures none Advance care planning discussed with:: patient Assessment & Plan Assessment Current Active Medications: Generic Name Dose Route Start Last Admin Trade Name Freq PRN Reason Stop Dose Admin Acetaminophen 650 mg 03/13/24 04:48 Acetaminophen 325 Mg Tablet PO 04/12/24 04:47 Q6H PRN Fever >101.5 Acetaminophen 650 mg 03/13/24 04:48 Acetaminophen 325 Mg Tablet PO 04/12/24 04:47 Q6H PRN PAIN SCALE 1-3 (mild Naloxone HCl 2 mg/ Dextrose 500 mls @ 10 mls/hr 03/13/24 05:22 IV 04/12/24 04:59 .Q24H PRN RESPIRATORY DEPRESSION Lactulose 10 gm 03/13/24 04:48 03/13/24 12:38 Lactulose Syrup 20 Gm/30 Ml Udc PO 04/12/24 08:59 10 gm QDAY PRN Administration constipation Protocol Morphine Sulfate 30 mg 03/13/24 04:58 03/14/24 08:26 Morphine Sulf 30 Mg Tabcr PO 03/18/24 04:57 30 mg Q12HR PRN Administration Pain 7-10 Protocol Non-Formulary Medication 500 mg 03/13/24 21:00 03/14/24 08:26 Abiraterone PO 04/12/24 20:59 Not Given BID JORGE LUIS Ondansetron HCl 4 mg 03/13/24 04:48 Ondansetron Inj 2 Mg/Ml Inj 2 Ml IV 04/12/24 04:47 Q6H PRN NAUSEA OR VOMITING Protocol Oxycodone/Acetaminophen 1 tab 03/13/24 04:48 03/13/24 07:43 Oxycodone/Apap 5/325 Tablet PO 03/18/24 04:47 1 tab Q6H PRN Administration PAIN SCALE 4-6 (Moderate Pantoprazole Sodium 40 mg 03/14/24 09:00 03/14/24 08:25 Pantoprazole Inj 40 Mg Vial IV 04/13/24 08:59 40 mg BID JORGE LUIS Administration Tamsulosin HCl 0.4 mg 03/13/24 09:00 03/14/24 08:26 Tamsulosin Hcl 0.4 Mg Capsule PO 04/12/24 08:59 0.4 mg QDAY JORGE LUIS Administration Plan Patient is a 68-year-old male with a past medical history of polysubstance use disorder (heroin and cocaine), history of hepatitis C, history of prostate cancer with mets to the bone who follows Dr. Alford/Abigail who was admitted for hematemesis. #Hematemsis #Upper GI bleed Patient reported acute onset of hematemesis, that came on with nausea. Has a history of Peptic ulcer diasease. Hematemsis secondary to medication use such as predinisone or chemo therapy medication can not be ruled out-currently holding. Patient reported using a toothbrush to force emesis. Boerhave event secondary to retching can not be ruled vs history of peptid ulcer given past medical history. 03/14/2023 EGD scheduled for today. Patient reported some red streaks on toilet paper, but occured while straining. Did not noticed blood in stool. No FOBT collected overnight. Diagnsotics: (03/13/2023) Hgb 10.3 and Hct 30.6 MCV 94, Plt 209 (03/12/2023): PT 10.9 and INR 1 (both within normal limits) Plan ?Continue pantoprazole drip ? NPO after midnight, EGD scheduled for today ? Follow-up on the FOB test (no bowel movements reported on 03/13/2024, follow up tomorrow w/ nurse) -EGD on 03/14/2024 ?GI specialist Dr. Miller was consulted, follow-up on recommendations #Chest pain #Sinus Tachycardia Patient describes epigastric pain that does not radiate to the back and currently not present only while hematemesis. Patient denied past medical history of [place]. Patient denied past medical history of GERD. EKG and troponin unremarkable. Given acute blood loss from hematemesis patient has presented with tachycardia likely secondary to acute blood loss follow-up with hemoglobin and hematocrit at midnight. Diagnostic: -Troponin <0.02 -EKG: Sinus Tachycardia Plan ? Continue to monitor closely HR -consider Hgb and Hct #CKD stage IIIa Patient is unaware of any kidney disease. On review of the patient's chart his baseline serum creatinine is 1.6 with GFR of 47. Plan ? Avoid nephrotoxic medications ? Daily BMP ? Consider consulting medical safety director if clinically warranted #History of prostate cancer with metastasis #Diffuse bone metastasis Patient has history of prostatic cancer, follow-up with Dr. Hayes. Patient is unaware of his cancer medications Plan ? Consider resuming patient medications after med reconciliation ? Resume patient tamsulosin -Resume Abiraterone 500 mg BID -Holding Predinsone #Incidental finding of pleural effusion Patient does not complain of any shortness of breath, cough, runny nose, or congestion. Denied any history of sick contact Plan ? Continue to monitor could be related to cancer metastasis #Polysubstance Use Disorder #Remote history of IV drug abuse #History of hepatitis C Liver enzymes within normal limits, albumin levels within normal limits no coagulopathy. CT scan did not show liver cirrhosis. Plan ? HIV Negative ? Follow-up with the GI specialist recommendations ? Follow-up in an outpatient settings with his PCP Hospital Maintenance: FEN: Clear liquid diet, NPO after midnight DVT ppx: SCDs GI ppx: Protonix IV lines: PIV [place]: None Code status: Full code Dispo: Med/tele - The patient's plan was discussed with attending Dr. Dennis and senior residents Dr. Carlitos Reynoso MD PGY1 Internal Medicine Senior Resident Attestation: I discussed with and supervised the food and beverage intern physician involved in the care of this patient. I personally saw and examined the patient and discussed the assessment and plan with the entire medicine team, including my attending. I agree with the assessment and plan as documented above. Patient seen and examined at bedside. Patient is AO x 3. Patient did not have any acute events overnight. Patient tried to have a bowel movement last night and strained did not have a bowel movement however he wiped and saw blood. No other events. Hemoglobins been stable. Pending EGD from GI. Continue Protonix. - Patient's care was discussed with my attending physician. Slick Urbina MD Internal Medicine PGY-3 Attending Provider Attestation/Addendum I attest that I was physically present for the evaluation, physical examination, lab and imaging review of the patient with the residents. I discussed the case with the residents and agree with the findings and plans of care as documented above. At bedside today, patient states she is feeling well and does not have any complaints. Patient noticed a small amount of blood while she was trying to have a bowel movement. He admitted to straining while trying to have the bowel movement. Patient currently on pantoprazole drip, n.p.o., plan for EGD with GI. Hemoglobin continues to be stable. Rosario Dennis MD
[2024-03-15] VITALS (10 sets, daily range): BP systolic 119–156; BP diastolic 71–86; PULSE 59–75; RESP 16–97; TEMP 36.1–36.3; O2SAT 91–96
[2024-03-15 05:49] LABS: Basophils % (Auto) 1 % (0-2.5); Eosinophils # (Auto) 0.2 Thou/mm3 (0.0-0.5); Eosinophils % (Auto) 5 % (0-10); Hematocrit 31.5 % (41.0-53.0); Hemoglobin 10.7 g/dL (13.5-16.0); Immature Granulocytes % (Auto) 0 % (0-0); Immature Granulocytes Auto 0.01 Thou/mm3 (0.00-0.00); Lymphocytes # (Auto) 1.8 Thou/mm3 (1.0-4.8); Lymphocytes % (Auto) 44 % (10-50); Mean Corpuscular Hemoglobin 31.7 pg (25.0-35.0); Mean Corpuscular Volume 93 fL (80-100); Monocytes # (Auto) 0.6 Thou/mm3 (0.0-0.8); Monocytes % (Auto) 14 % (0-12); Neutrophils # (Auto) 1.5 Thou/mm3 (1.8-7.7); Neutrophils % (Auto) 37 % (37-80); Nucleated Red Blood Cell % 0 /100 WBC (0); Platelet Count 229 Thou/mm3 (140-440); RDW Standard Deviation 43.8 fL (35.1-43.9); Red Blood Count 3.38 Miln/mm3 (4.50-5.90); White Blood Count 4.1 Thou/mm3 (3.8-10.6)
[2024-03-15 06:25] LABS: Alanine Aminotransferase 32 U/L (10-49); Albumin, Serum 3.5 gm/dL (3.4-4.8); Albumin/Globulin Ratio 1.5 (1.2-2.2); Alkaline Phosphatase 41 U/L (46-116); Anion Gap 7 (7-16); Aspartate Amino Transferase 68 U/L (0-34); BUN/Creatinine Ratio 14 Ratio (12-20); Bilirubin,Total 0.5 mg/dL (0.3-1.2); Blood Urea Nitrogen 17 mg/dL (9-23); Calcium 8.9 mg/dL (8.3-10.6); Calcium (Corrected) 9.3 mg/dL (8.5-10.1); Carbon Dioxide 26.7 mMol/L (20.0-31.0); Chloride 108 mMol/L (98-107); Creatinine (Component) 1.2 mg/dL (0.6-1.3); Estimated Creatinine Clearance 53.2 mL/min (>60); Globulin 2.4 gm/dL (2.3-3.5); Glucose 87 mg/dL (74-106); Osmolality,Calculated 283 (275-295); Phosphorous 1.9 mg/dL (2.4-5.1); Sodium 142 mMol/L (136-145); Total Protein 5.9 gm/dL (5.7-8.2); eGFR > 60 See Note
[2024-03-15] MEDS: TAMSULOSIN HCL 0.4 MG CAPSULE PO (08:01)
[2024-03-15] MEDS: PANTOPRAZOLE INJ 40 MG VIAL IV ×2 (08:01→20:19)
[2024-03-15] MEDS: MORPHINE SULF 30 MG TABCR PO ×2 (08:37→20:19)
[2024-03-15] MEDS: NAPH,KPH MBDB 1 PACKET (1.5 GM) 2 PACKET PO (10:55)
[2024-03-15] MEDS: Lisinopril 2.5 MG TABLET 10 MG PO (10:55)
--- NOTE | 2024-03-15 12:30 | PC.SS ---
SS met with pt to confirm DC plan, pt wishes to return home and his daughter Daksha Monte [phone] will provide transport on his behalf. No further needs identified.
--- NOTE | 2024-03-15 15:17 | ESPR_ITS ---
<Statement entered by Carlos Batista MD - 03/15/24 16:39> Patient was seen and examined at the bedside. Patient reported that he had a bowel movement with blood. EGD showed esophageal ulcers with esophagitis. Dr. Miller, GI specialist recommended to continue Protonix and keep him for 1 more day for evaluation. Patient was agreed regarding plan. Vitals reviewed slightly elevated blood pressure. Hemoglobin stable at 10.7. Chemistry panel was unremarkable. Phosphorus was repleted. We added lisinopril on discharge for blood pressure management. All labs and orders were reviewed. I saw and examined the patient, and I agree with current management stated by Dr Glenda MD,PGY1. Plan of care was discussed with the attending physician and resident physician. Disclaimer: Despite multiple revisions, due to the dictation software being used, the document bellow may not be free of grammatical errors including phonetic/typographic errors. However, this does not deter from our commitment to providing health care in the patient's best interest in mind. Dr. Lynne MD, PGY 2 Documentation for date of: 03/15/24 Subjective Subjective Interval history: No overnight events. Patient seen and examined at bedside. Patient comfortable, tolerating diet well. No specific complaints. Will monitor for further signs of rectal bleed for one more day, plan to d/c tomorrow. Exam Vital Signs Temp Pulse Resp BP Pulse Ox O2 Del Method O2 Flow Rate 97.3 F 71 16 156/86 H 91 L Room Air 3 03/15/24 12:00 03/15/24 13:31 03/15/24 13:31 03/15/24 12:00 03/15/24 12:00 03/15/24 12:00 03/14/24 17:44 Narrative Exam General Appearance: Alert & Oriented X3, well-nourished male who is sitting in chair in no acute distress HEENT: Skull symmetrical and atraumatic. Conjunctivae pink and moist. Pupils equal, round, reactive to light and accommodation (PERRL). External ear without lesion or discharge. Straight, nares patient, mucosa pink, no discharge. Cardio: Normal Rate and Rhythm with S1 and S2 heart sounds. No murmurs or extra heart sounds auscultated. No peripheral edema or cyanosis. Lungs: Symmetric with good expansion. Chest and back non-tender. Breath sounds vesicular without crackles, wheezing or rhonchi Abdomen: Non-tender, Non-distended, Normal Reactive Bowel Sounds Neuro: Alert, cooperative, oriented to person, place, and time. Speech clear. CN grossly intact. Upper motor strength 5/5 and Lower motor strength 5/5. Sensation intact. Objective Labs 03/15/24 05:09 03/15/24 05:09 Labs: Laboratory Results - last 24 hr 03/15/24 05:09 WBC 4.1 RBC 3.38 L Hgb 10.7 L Hct 31.5 L MCV 93 MCH 31.7 MCHC 34.0 RDW Std Deviation 43.8 Plt Count 229 D Neut % (Auto) 37 Lymph % (Auto) 44 [place] % (Auto) 14 H Eos % (Auto) 5 Baso % (Auto) 1 Neut # (Auto) 1.5 L Lymph # (Auto) 1.8 [place] # (Auto) 0.6 Eos # (Auto) 0.2 Baso # (Auto) 0.0 Immature Gran # (Auto) 0.01 H Absolute Nucleated RBC 0.00 Immature Gran % 0 Nucleated RBC % 0 Sodium 142 Potassium 4.0 Chloride 108 H Carbon Dioxide 26.7 Anion Gap 7 BUN 17 Creatinine 1.2 Estim Creat Clear Calc 53.2 L eGFR > 60 BUN/Creatinine Ratio 14 Glucose 87 Calculated Osmolality 283 Calcium 8.9 Corrected Calcium 9.3 Phosphorus 1.9 L Magnesium 2.0 Total Bilirubin 0.5 AST 68 H ALT 32 Alkaline Phosphatase 41 L Total Protein 5.9 Albumin 3.5 Globulin 2.4 Albumin/Globulin Ratio 1.5 Quality Measures Quality Measures VTE prophylaxis and none Advance care planning discussed with:: patient Assessment & Plan Assessment Current Active Medications: Generic Name Dose Route Start Last Admin Trade Name Freq PRN Reason Stop Dose Admin Acetaminophen 650 mg 03/13/24 04:48 Acetaminophen 325 Mg Tablet PO 04/12/24 04:47 Q6H PRN Fever >101.5 Acetaminophen 650 mg 03/13/24 04:48 Acetaminophen 325 Mg Tablet PO 04/12/24 04:47 Q6H PRN PAIN SCALE 1-3 (mild Naloxone HCl 2 mg/ Dextrose 500 mls @ 10 mls/hr 03/13/24 05:22 IV 04/12/24 04:59 .Q24H PRN RESPIRATORY DEPRESSION Lactulose 10 gm 03/13/24 04:48 03/13/24 12:38 Lactulose Syrup 20 Gm/30 Ml Udc PO 04/12/24 08:59 10 gm QDAY PRN Administration constipation Protocol Lisinopril 10 mg 03/15/24 10:45 03/15/24 10:55 Lisinopril 2.5 Mg Tablet PO 04/14/24 10:44 10 mg QDAY JORGE LUIS Administration Morphine Sulfate 30 mg 03/13/24 04:58 03/15/24 08:37 Morphine Sulf 30 Mg Tabcr PO 03/18/24 04:57 30 mg Q12HR PRN Administration Pain 7-10 Protocol Non-Formulary Medication 500 mg 03/13/24 21:00 03/15/24 08:01 Abiraterone PO 04/12/24 20:59 Not Given BID JORGE LUIS Ondansetron HCl 4 mg 03/13/24 04:48 Ondansetron Inj 2 Mg/Ml Inj 2 Ml IV 04/12/24 04:47 Q6H PRN NAUSEA OR VOMITING Protocol Oxycodone/Acetaminophen 1 tab 03/13/24 04:48 03/13/24 07:43 Oxycodone/Apap 5/325 Tablet PO 03/18/24 04:47 1 tab Q6H PRN Administration PAIN SCALE 4-6 (Moderate Pantoprazole Sodium 40 mg 03/14/24 09:00 03/15/24 08:01 Pantoprazole Inj 40 Mg Vial IV 04/13/24 08:59 40 mg BID JORGE LUIS Administration Tamsulosin HCl 0.4 mg 03/13/24 09:00 03/15/24 08:01 Tamsulosin Hcl 0.4 Mg Capsule PO 04/12/24 08:59 0.4 mg QDAY JORGE LUIS Administration Plan Patient is a 68-year-old male with a past medical history of polysubstance use disorder (heroin and cocaine), history of hepatitis C, history of prostate cancer with mets to the bone who follows Dr. Alford/Abigail who was admitted for hematemesis. #Hematemsis #Upper GI bleed Patient reported acute onset of hematemesis, that came on with nausea. Has a history of Peptic ulcer diasease. Hematemsis secondary to medication use such as predinisone or chemo therapy medication can not be ruled out-currently holding. Patient reported using a toothbrush to force emesis. Boerhave event secondary to retching can not be ruled vs history of peptid ulcer given past medical history. 03/14/2023 EGD scheduled for today. Patient reported some red streaks on toilet paper, but occured while straining. Did not noticed blood in stool. No FOBT collected overnight. 03/15/2023: EGD showed nonbleeding esophageal ulcers. Diet advanced to bleed/peptic ulcer diet, well tolerated. Diagnsotics: (03/13/2023) Hgb 10.3 and Hct 30.6 MCV 94, Plt 209 (03/12/2023): PT 10.9 and INR 1 (both within normal limits) Plan ?Protonix 40mg IV BID ?FOBT positive ?GI specialist Dr. Miller was consulted, follow-up on recommendations -monitor for further signs rectal bleed #Chest pain #Sinus Tachycardia Patient describes epigastric pain that does not radiate to the back and currently not present only while hematemesis. Patient denied past medical history of [place]. Patient denied past medical history of GERD. EKG and troponin unremarkable. Given acute blood loss from hematemesis patient has presented with tachycardia likely secondary to acute blood loss follow-up with hemoglobin and hematocrit at midnight. Diagnostic: -Troponin <0.02 -EKG: Sinus Tachycardia Plan ?Continue to monitor closely HR -consider Hgb and Hct #CKD stage IIIa Patient is unaware of any kidney disease. On review of the patient's chart his baseline serum creatinine is 1.6 with GFR of 47. Plan ? Avoid nephrotoxic medications ? Daily BMP ? Consider consulting story reader if clinically warranted #History of prostate cancer with metastasis #Diffuse bone metastasis Patient has history of prostatic cancer, follow-up with Dr. Hayes. Patient is unaware of his cancer medications Plan ? Consider resuming patient medications after med reconciliation ? Resume patient tamsulosin -Resume Abiraterone 500 mg BID -Holding Predinsone #Incidental finding of pleural effusion Patient does not complain of any shortness of breath, cough, runny nose, or congestion. Denied any history of sick contact Plan ? Continue to monitor could be related to cancer metastasis #Polysubstance Use Disorder #Remote history of IV drug abuse #History of hepatitis C Liver enzymes within normal limits, albumin levels within normal limits no coagulopathy. CT scan did not show liver cirrhosis. Plan ? HIV Negative ? Follow-up with the GI specialist recommendations ? Follow-up in an outpatient settings with his PCP Hospital Maintenance: FEN: [place]/peptic ulcer diet DVT ppx: SCDs GI ppx: Protonix IV lines: PIV [place]: None Code status: Full code Dispo: Med/tele Plan of care discussed with senior resident Dr. Batista PGY-[address] Dennis. Willy Doshi MD PGY-1 Attending Provider Attestation/Addendum I attest that I was physically present for the evaluation, physical examination, lab and imaging review of the patient with the residents. I discussed the case with the residents and agree with the findings and plans of care as documented above. Rosario Dennis MD
--- NOTE | 2024-03-15 19:57 | PD.IMPROG ---
Documentation for date of: 03/15/24 Subjective Subjective Interval history: Patient evaluated Hemoglobin hematocrit 10.7 and 31.5 with a WBC count of 4.1 Exam Vital Signs Temp Pulse Resp BP Pulse Ox O2 Del Method O2 Flow Rate 97.1 F 67 18 133/74 H 93 L Room Air 3 03/15/24 16:00 03/15/24 19:36 03/15/24 16:00 03/15/24 16:00 03/15/24 16:00 03/15/24 16:00 03/14/24 17:44 Routine Abdominal Exam Comments: Soft nontender Objective Labs 03/15/24 05:09 03/15/24 05:09 Labs: Laboratory Results - last 24 hr 03/15/24 05:09 WBC 4.1 RBC 3.38 L Hgb 10.7 L Hct 31.5 L MCV 93 MCH 31.7 MCHC 34.0 RDW Std Deviation 43.8 Plt Count 229 D Neut % (Auto) 37 Lymph % (Auto) 44 [place] % (Auto) 14 H Eos % (Auto) 5 Baso % (Auto) 1 Neut # (Auto) 1.5 L Lymph # (Auto) 1.8 [place] # (Auto) 0.6 Eos # (Auto) 0.2 Baso # (Auto) 0.0 Immature Gran # (Auto) 0.01 H Absolute Nucleated RBC 0.00 Immature Gran % 0 Nucleated RBC % 0 Sodium 142 Potassium 4.0 Chloride 108 H Carbon Dioxide 26.7 Anion Gap 7 BUN 17 Creatinine 1.2 Estim Creat Clear Calc 53.2 L eGFR > 60 BUN/Creatinine Ratio 14 Glucose 87 Calculated Osmolality 283 Calcium 8.9 Corrected Calcium 9.3 Phosphorus 1.9 L Magnesium 2.0 Total Bilirubin 0.5 AST 68 H ALT 32 Alkaline Phosphatase 41 L Total Protein 5.9 Albumin 3.5 Globulin 2.4 Albumin/Globulin Ratio 1.5 Impressions Impression: # Distal esophageal ulceration # Gastritis If CBC stable tomorrow patient can be discharged home on PPIs Assessment & Plan A&P Narrative # Coffee-ground hematemesis etiology uncertain Plan Serial CBC N.p.o. midnight tonight except p.o. 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
[2024-03-16] VITALS (8 sets, daily range): BP systolic 112–165; BP diastolic 54–85; PULSE 64–78; RESP 18–95; TEMP 36.2–36.5; O2SAT 94–99; BMI 28.9
[2024-03-16 07:51] LABS: Phosphorous 2.3 mg/dL (2.4-5.1)
[2024-03-16] MEDS: Lisinopril 2.5 MG TABLET 10 MG PO ×2 (08:42→12:20)
[2024-03-16] MEDS: PANTOPRAZOLE INJ 40 MG VIAL IV (08:45)
[2024-03-16] MEDS: TAMSULOSIN HCL 0.4 MG CAPSULE PO (08:45)
[2024-03-16] MEDS: NAPH,KPH MBDB 1 PACKET (1.5 GM) PO (09:16)
[2024-03-16] MEDS: MORPHINE SULF 30 MG TABCR PO (09:16)
[2024-03-16 11:57] LABS: Basophils % (Auto) 1 % (0-2.5); Eosinophils # (Auto) 0.2 Thou/mm3 (0.0-0.5); Eosinophils % (Auto) 5 % (0-10); Hemoglobin 10.3 g/dL (13.5-16.0); Immature Granulocytes % (Auto) 0 % (0-0); Lymphocytes # (Auto) 1.5 Thou/mm3 (1.0-4.8); Lymphocytes % (Auto) 38 % (10-50); Mean Corpuscular HGB Conc 33.2 g/dl (31.0-37.0); Mean Corpuscular Hemoglobin 31.4 pg (25.0-35.0); Mean Corpuscular Volume 95 fL (80-100); Monocytes # (Auto) 0.6 Thou/mm3 (0.0-0.8); Monocytes % (Auto) 15 % (0-12); Neutrophils # (Auto) 1.7 Thou/mm3 (1.8-7.7); Neutrophils % (Auto) 42 % (37-80); Nucleated Red Blood Cell % 0 /100 WBC (0); Platelet Count 221 Thou/mm3 (140-440); RDW Standard Deviation 44.9 fL (35.1-43.9); Red Blood Count 3.28 Miln/mm3 (4.50-5.90); White Blood Count 4.1 Thou/mm3 (3.8-10.6)
[2024-03-16 12:07] LABS: Alanine Aminotransferase 28 U/L (10-49); Albumin, Serum 3.5 gm/dL (3.4-4.8); Albumin/Globulin Ratio 1.4 (1.2-2.2); Alkaline Phosphatase 40 U/L (46-116); Anion Gap 8 (7-16); Aspartate Amino Transferase 52 U/L (0-34); BUN/Creatinine Ratio 12 Ratio (12-20); Bilirubin,Total 0.3 mg/dL (0.3-1.2); Blood Urea Nitrogen 14 mg/dL (9-23); Calcium 8.8 mg/dL (8.3-10.6); Calcium (Corrected) 9.2 mg/dL (8.5-10.1); Carbon Dioxide 25.2 mMol/L (20.0-31.0); Chloride 109 mMol/L (98-107); Creatinine (Component) 1.2 mg/dL (0.6-1.3); Globulin 2.5 gm/dL (2.3-3.5); Glucose 101 mg/dL (74-106); Magnesium 1.8 mg/dL (1.6-2.6); Osmolality,Calculated 283 (275-295); Potassium 3.6 mMol/L (3.4-5.1); Sodium 142 mMol/L (136-145); eGFR > 60 See Note
--- NOTE | 2024-03-16 12:10 | PC.NURSE ---
patient has discharge orders, he states his daughter will pick him up after 1500, offered an uber and he declined it.
--- NOTE | 2024-03-16 14:20 | ESDS_ITS ---
<Statement entered by Rosario Dennis MD - 03/16/24 17:47> I attest that I was physically present for the evaluation, physical examination, lab and imaging review of the patient with the residents. I discussed the case with the residents and agree with the findings and plans of care as documented above. At bedside today, patient states he is feeling well and does not have any complaints. His hemoglobin continues to be stable, denies any bloody streak in his stool today. Discussed with GI, patient deemed stable for discharge on oral pantoprazole twice daily. Recommended follow-up with PCP and gastroenterology in 1 to 2 weeks of discharge. Rosario Dennis MD <Statement entered by Carlos Batista MD - 03/16/24 15:57> I saw and examined the patient, and I agree with current management stated by Dr Angeles MD,PGY1. Plan of care was discussed with the attending physician and resident physician. Disclaimer: Despite multiple revisions, due to the dictation software being used, the document bellow may not be free of grammatical errors including phonetic/typographic errors. However, this does not deter from our commitment to providing health care in the patient's best interest in mind. Dr. Lynne MD, PGY 2 Planned Discharge Date 03/16/24 DS: Providers Provider Date of admission: 03/13/24 04:48 Primary care physician: Joshua Cotto PA-C Admitting Provider: Trevor Lema MD Attending Provider on Admission: Rosario Dennis MD Consults: 03/13/24 04:09 Consult to Gastroenterology Stat Comment: Consulting Provider: Eliot Miller Attending Provider on DC: Rosario Dennis MD Discharging Provider: Rosario Dennis MD DS: Diagnosis Problem List Completed Was Problem List Reviewed/Reconciled?: Yes Hospital Course Hospital Course Hospital course: Summary: Patient is a 68-year-old male with a past medical history of polysubstance use disorder (heroin and cocaine), history of hepatitis C, history of prostate cancer with mets to the bone who follows Dr. Alford/Abigail who was admitted for hematemesis and found to have Esophageal ulcers and non erosive gastritis on EGD (03/14/2024). ER Course: In the ED patient was found to have stable vital signs, rate was 96. Hemoglobin was stable at 10.3 his baseline is 11.5. Hematocrit of 30, platelets of 209 coagulation studies within normal limits. Chemistry was significant only for serum creatinine of 1.6 which is his baseline from previous labs. GFR of 47. CT scan of the abdomen and pelvis showed small right pleural effusion that is new and was not seen in the previous CT. Retroperitoneal bilateral iliac lymphadenopathy that showed significant improvement since previous CT scan that was done in July 2023. Also sclerotic bone lesions most likely metastatic tumors. Hospital Course: In hospital, patient was made n.p.o. for EGD with Dr. Miller, form carpenter. EGD showed esophageal ulcers and nonerosive gastritis characterized by erythema. Recommendations to go home with Protonix and peptic ulcer diet per GI. Patient also had a positive FOBT consider outpatient follow-up with colonoscopy. Given progressing prostate cancer now with mets to the bones please follow-up with Dr. Alford. Holding predinsone given posibility of esophageal ulcers secondary to medication, please follow up with onoclogy physician for further recommendations. Instructions: Take home medications as prescribed Take lisinopril 20 mg once daily and amlodipine 10 mg once daily for blood pressure management Your EGD showed esophageal ulcers and GI specialist recommended Protonix 40 mg twice daily to be continued Follows with PCP as outpatient within a week follow with your small pleural effusion for any changes. Please follow up with Dr. Don, form carpenter, within one week of discharge for positive blood in stool. Follow-up with your oncologist as outpatient within a week Continue taking peptic ulcer bland diet Avoid taking NSAIDS or pain meds which increase risk of bleeding In case of bleeding, worsening signs symptoms, call 911 or come back to the ED If you do not have a primary care provider, you may follow up at the [facility] at [facility] [address], [place] [address] #Esophageal Ulcers #Non-Erosive Gastritis #Hematemsis #Upper GI bleed #Chest pain #Sinus Tachycardia #CKD stage IIIa #History of prostate cancer with metastasis #Diffuse bone metastasis #Incidental finding of pleural effusion #Polysubstance Use Disorder #Remote history of IV drug abuse #History of hepatitis C - The patient's plan was discussed with attending Dr Dennis and senior residents Dr. Lynne Reynoso MD PGY1 Internal Medicine Time Spent with Patient Time attestation: Total time spent providing and/or coordinating discharge services: at least 35 minutes Quality: Stroke Pt Provided Written Stroke Discharge Instructions: No Exam Vital Signs Temp Pulse Resp BP Pulse Ox O2 Del Method O2 Flow Rate 97.7 F 72 18 165/85 H 96 Room Air 3 03/16/24 12:00 03/16/24 12:20 03/16/24 12:00 03/16/24 12:20 03/16/24 12:00 03/16/24 12:00 03/14/24 17:44 Narrative Exam General Appearance: Alert & Oriented X3, well-nourished male who is lying in bed in no acute distress HEENT: Skull symmetrical and atraumatic. Conjunctivae pale pink and moist. Pupils equal, round, reactive to light and accommodation (PERRL). External ear without lesion or discharge. Straight, nares patient, mucosa pink, no discharge. No thyroid nodule appreciated. Cardio: Normal Rate and Rhythm with S1 and S2 heart sounds. No murmurs or extra heart sounds auscultated. No bruits on carotid auscultation. No peripheral edema or cyanosis. Lungs: Symmetric with good expansion. Chest and back non-tender. Breath sounds vesicular without crackles, wheezing or rhonchi Abdomen: Non-tender, Non-distended, Normal Reactive Bowel Sounds Neuro: Alert, cooperative, oriented to person, place, and time. Speech clear. CN grossly intact. Upper motor strength 5/5 and Lower motor strength 5/5. Sensation intact. Discharge Plan Plan Patient Disposition: HOME (Self Care) Patient condition on transfer: Stable Care Plan Goals: Take home medications as prescribed Take lisinopril 20 mg once daily and amlodipine 10 mg once daily for blood pressure management Your EGD showed esophageal ulcers and GI specialist recommended Protonix 40 mg twice daily to be continued Follows with PCP as outpatient within a week follow with your small pleural effusion for any changes. Please follow up with Dr. Don, form carpenter, within one week of discharge for positive blood in stool. Follow-up with your oncologist as outpatient within a week Continue taking peptic ulcer bland diet Avoid taking NSAIDS or pain meds which increase risk of bleeding In case of bleeding, worsening signs symptoms, call 911 or come back to the ED If you do not have a primary care provider, you may follow up at the [facility] at [address] [place] [address] [address], [place] [address] Prescriptions/Referrals Prescriptions/Med Rec: New lisinopril 20 mg tablet 20 mg PO QDAY 30 Days Qty: 30 0RF morphine 30 mg capsule, ER multiphase 24 hr 30 mg PO Q12H MDD 2 PRN (Reason: moderate pain (scale score 7-10) Qty: 14 0RF pantoprazole 40 mg tablet,delayed release (DR/EC) 40 mg PO BID 30 Days Qty: 60 0RF abiraterone 500 mg tablet 500 mg PO BID 30 Days Qty: 60 0RF Rx Instructions: must be taken on empty stomach, at least 1 hr before or 2 hrs after a meal/food Continued simvastatin 40 mg Tablet 40 mg PO QPM tamsulosin [Flomax] 0.4 mg Capsule 0.4 mg PO QDAY amlodipine 10 mg Tablet 10 mg PO QDAY hydrochlorothiazide 12.5 mg Tablet 12.5 mg PO QAM Referrals: Eliot Miller MD [Physician] - Joshua Cotto PA-C [Primary Care Provider] - Patient/Caregiver Discharge Instructions Education Materials: Bleeding Peptic Ulcer: Treatment, Esophageal Ulcer, GERD Lifestyle Changes, Medicines for GERD, How Acid Reflux Affects Your Throat Print Language: Polish Stand Alone Forms: Annabelle Award Info., Patient Portal Info Letter Discharge Order Discharge Orders: Discharge (Routine); Ordered 03/16/24 Ordered By: Carlos Batista Quality Discharge Quality Measures VTE prophylaxis
--- NOTE | 2024-03-16 20:00 | PD.IMPROG ---
Documentation for date of: 03/16/24 Subjective Subjective Interval history: Late entry for the note Case discussed with internal medicine team Hemoglobin hematocrit 10.3 and 30.0 Okay to discharge patient home on PPI No need for GI follow-up Exam Vital Signs Temp Pulse Resp BP Pulse Ox O2 Del Method O2 Flow Rate 97.2 F 71 18 112/63 94 L Room Air 3 03/16/24 16:00 03/16/24 16:00 03/16/24 16:00 03/16/24 16:00 03/16/24 16:00 03/16/24 16:00 03/14/24 17:44 Objective Labs 03/16/24 11:00 03/16/24 11:00 Labs: Laboratory Results - last 24 hr 03/16/24 03/16/24 06:09 11:00 WBC 4.1 RBC 3.28 L Hgb 10.3 L Hct 31.0 L MCV 95 MCH 31.4 MCHC 33.2 RDW Std Deviation 44.9 H Plt Count 221 Neut % (Auto) 42 Lymph % (Auto) 38 Greenlee % (Auto) 15 H Eos % (Auto) 5 Baso % (Auto) 1 Neut # (Auto) 1.7 L Lymph # (Auto) 1.5 Greenlee # (Auto) 0.6 Eos # (Auto) 0.2 Baso # (Auto) 0.0 Immature Gran # (Auto) 0.00 Absolute Nucleated RBC 0.00 Immature Gran % 0 Nucleated RBC % 0 Sodium 142 Potassium 3.6 Chloride 109 H Carbon Dioxide 25.2 Anion Gap 8 BUN 14 Creatinine 1.2 Estim Creat Clear Calc 52.0 L eGFR > 60 BUN/Creatinine Ratio 12 Glucose 101 Calculated Osmolality 283 Calcium 8.8 Corrected Calcium 9.2 Phosphorus 2.3 L Magnesium 1.8 Total Bilirubin 0.3 AST 52 H ALT 28 Alkaline Phosphatase 40 L Total Protein 6.0 Albumin 3.5 Globulin 2.5 Albumin/Globulin Ratio 1.4 Impressions Impression: # Acute posthemorrhagic anemia # Esophageal ulcers Continue current medications Assessment & Plan A&P Narrative # Coffee-ground hematemesis etiology uncertain Plan Serial CBC N.p.o. midnight tonight except p.o. 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
== END 2024-03-16 16:01 | disposition home or self-care (01) | DRG 381 ==
LOC: SERX 03-13 03:07 → SERHOLD 03-13 05:13 → S3SX 03-13 09:46
PROVIDERS: Physician Assistant; Specialist; Student in an Organized Health Care Education/Training Program; Admitting Provider Student in an Organized Health Care Education/Training Program; Emergency Provider Emergency Medicine; PCP Physician Assistant; Visit Provider Student in an Organized Health Care Education/Training Program
PROC: 0DJ08ZZ Inspection of Upper Intestinal Tract, Via Natural or Artificial Opening Endoscopic (ICD-10-PCS; CPT 43239; principal; 2024-03-14 16:30)
DX: K22.11 Ulcer of esophagus with bleeding (principal); C79.51 Secondary malignant neoplasm of bone; J90 Pleural effusion, not elsewhere classified; D62 Acute posthemorrhagic anemia; N18.31 Chronic kidney disease, stage 3a; R00.0 Tachycardia, unspecified; F19.10 Other psychoactive substance abuse, uncomplicated; Z87.891 Personal history of nicotine dependence; K29.70 Gastritis, unspecified, without bleeding; C61 Malignant neoplasm of prostate
CPT/HCPCS: 36415; 71045; 74177; 80053; 80329; 83036; 83690; 83735; 84100; 84443; 84484; 85025; 85610; 86703; 86850; 86900; 86901; 87502; 93005; 93225; 96361; 96374; 99291; A4649; J1200; J2250; J2470; J3010; J3490; J7030; Q0162; Q9967; A9270; G0480

== ENCOUNTER 2024-03-31 14:05 | Outpatient (RCR) | payer MEDICARE, SELFPAY | END 2024-04-09 23:59 | disposition home or self-care (01) | LOC: SCTC 14:05 | PROVIDERS: PCP Family Medicine; Referring Provider Family Medicine; Visit Provider Internal Medicine Hematology & Oncology | DX: Z51.11 Encounter for antineoplastic chemotherapy (principal); C61 Malignant neoplasm of prostate; C79.51 Secondary malignant neoplasm of bone; Z19.1 Hormone sensitive malignancy status; R59.0 Localized enlarged lymph nodes; F11.11 Opioid abuse, in remission; Z86.19 Personal history of other infectious and parasitic diseases | CPT/HCPCS: 96372; 96402; J0897; J9217 ==

== ENCOUNTER 2024-04-14 10:54 | Outpatient (RCR) | payer MEDICARE, SELFPAY ==
--- NOTE | 2024-04-14 13:18 | CTCTXPLNST_ITS ---
Radiation Oncology Treatment Planning Sheet Name: RYLAN GARY MR#: [id number] : 1955 Dx: C61 Malignant neoplasm of prostate Date of Service: 04/14/2024 Account #: ?? Pt Treatment Intent: curative palliative other: Stage: Procedure CPT # Ordered Spec. Procedure 19449 Ruth Complex (set-up) 85972 L2- pelvis 1 Ruth Simple 90969 IMRT Plan 47100 1 MLC Devices VMAT 18801 3 Ruth 3 D 56655 TRTMT dev Complex 16601 vaklok 1 TRTMT dev simple 53418 Basic Prieto 70606 9 Special Dosimetry 22569 Spec Physics 50964 Port Films 96481 SRS Cranial/1FX 97344 SBR 5 FX or Less /ex: 5 = 5 fx 85841 IMRT Simple 72215 3000 10 IMRT Complex 03679 IGRT 19808 8 Rad del com 6-10 90870 Rad del com 11-19 80395 Cont Med Physics 19010 2 Treatment Planning 53186 1 Rad del com 20 mev 85101 Rad del inter 6-10 51635 Rad del inter 11- 64696 Rad del simple 6-10 14770 Rad del simple 11-19 67850 Special Port Plan 84050 TRTMT dev inter 56921 Isodose Complex 82472 Isodose simple 57054 Resp Motion Mgmt Simulation 20822 Placement of Fiducial Markers 95399 Electronically Signed By: Igor Ibanez MD, DABR 04/14/2024 1:16 PM
--- NOTE | 2024-04-14 13:19 | CTCTXPLN_ITS ---
[facility] [address] [place], [place] [address] Physician Clinical Treatment Planning Note Date of Service: 04/14/2024 Name: RYLAN DEWEYLoco CeballosB.: 1955 The patient has agreed to proceed with Radiation therapy. Tests and supporting medical records were interpreted to assist in defining the tumor location and extent of disease. Further imaging will be necessary to contour and delineate the volume to which the XRT will be provided. A. Treatment Intent: Palliative B. Modality: 6 MV C. Requested Technique: VMAT D. Treatment Site: E. Critical structures to be contoured on plan: F. In order to accomplish this plan, I am ordering/Prescribing the followin. Simulations (s) will be performed to accomplish a reproducible treatment position, to determine optimal treatment portals/beam arrangements, to design beam modifying devices and verify treatment portals on patient prior to the commencement of Radiation Therapy. 2. Devices; for immobilization and beam shapin. CT Guidance for placement of XRT morales Scan area: 4. Portal images Frequency: 5. Invivo transit dose measurement once per week on all VMAT patients. 6. Special Physics Consult Requested for: 7. Other requests: Palliative G. Dose Objectives: Electronically signed by: Igor Ibanez M.D. 04/14/2024 1:17 PM
--- NOTE | 2024-04-14 13:32 | CTCFLWUP_ITS ---
[facility] [address] [place], [place] [address] FOLLOW-UP NOTE Date: 04/14/2024 MR#: [id number] Name: RYLAN GARY : 1955 Dx: C61 Malignant neoplasm of prostate Identification. Patient is stage IVb castration sensitive metastatic prostate CA with bone mets and intra-abdominal lymphadenopathy. Currently receiving leuprolide Zytiga prednisone and denosumab under Dr. Alford's direction. After initial PSA of 833 on 02/13/2023, most recent PSA 02/04/2024 was 0.7. With significant persistent pain taking hydrocodone 7.5 4 times daily and MS ER 30 mg [address] scan 03/12/2024 showed significant abdominal left pelvic metastatic lymphadenopathy with osteoblastic mets. Prior lumbar and thoracic MRI performed 11/19/2023 shows significant bony mets although no sign of compression fracture or spinal cord involvement. Patient made an extra appointment to see me today because of pain crisis not alleviated with Current pain med regimen. A#!. Stage IVb castration sensitive metastatic prostate CA with bone mets and intra-abdominal lymphadenopathy, receiving leuprolide Zytiga prednisone denosumab under Dr. Mireles's direction. Most recent PSA was 0.7 02/03/1974 A#2 [place] bone mets noted on recent MRI and CT scan of 03/12/2024.. Pain severe despite high dose of opioids, MS ER 30 mg 3 times daily and hydrocodone 7.5 mg every 6 as needed #3. Instead of increasing or changing pain med regimen, wish to have radiation therapy to the most painful area in the lumbar sacral region of the pelvis noted on most recent CT scan. #4. Shall deliver 3000 cGy in 10 fractions over the sites. Side effects explained. Electronically signed by: Igor Ibanez M.D. 04/14/2024 1:30 PM
== END 2024-05-07 23:59 | disposition home or self-care (01) ==
LOC: SCTC 10:54
PROVIDERS: PCP Family Medicine; Referring Provider Radiology Therapeutic Radiology; Visit Provider Radiology Therapeutic Radiology
DX: C61 Malignant neoplasm of prostate (principal); C79.51 Secondary malignant neoplasm of bone; Z19.1 Hormone sensitive malignancy status; R59.0 Localized enlarged lymph nodes; G89.3 Neoplasm related pain (acute) (chronic)
CPT/HCPCS: 99213; G0463